=== PATIENT | female | born 1995 | race Caucasian/White ===

== ENCOUNTER 2020-03-03 12:16 | Outpatient (REF) | payer OTHER, SELFPAY | END 2020-03-03 12:17 | disposition home or self-care (01) | LOC: HO.LAB 12:16 | PROVIDERS: Visit Provider Internal Medicine | DX: Z20.828 Contact with and (suspected) exposure to other viral communicable diseases (principal) | CPT/HCPCS: C9803; U0003 ==

== ENCOUNTER 2020-03-15 23:09 | Emergency (ER) | payer OTHER, SELFPAY ==
[2020-03-15 23:25] VITALS: BP 134/78; PULSE 98; RESP 16; TEMP 36.6; O2SAT 100
[2020-03-15 23:41] VITALS: BP 134/78; PULSE 98; RESP 17; TEMP 36.6; O2SAT 100; BMI 33.5
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
[2020-03-16] MEDS: Ibuprofen 600 MG TABLET PO (00:37)
[2020-03-16 00:56] VITALS: BP 112/57; PULSE 81; RESP 16; O2SAT 100
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
== END 2020-03-16 02:13 | disposition home or self-care (01) ==
PROVIDERS: Emergency Provider Internal Medicine
DX: S13.4XXA Sprain of ligaments of cervical spine, initial encounter (principal); S29.012A Strain of muscle and tendon of back wall of thorax, initial encounter; S39.012A Strain of muscle, fascia and tendon of lower back, initial encounter; S16.1XXA Strain of muscle, fascia and tendon at neck level, initial encounter; M54.2 Cervicalgia; G44.309 Post-traumatic headache, unspecified, not intractable; V43.52XA Car driver injured in collision with other type car in traffic accident, initial encounter; Y93.9 Activity, unspecified; Y92.410 Unspecified street and highway as the place of occurrence of the external cause; Z98.84 Bariatric surgery status; Z79.899 Other long term (current) drug therapy
CPT/HCPCS: 70450; 72100; 72125; 99283; 99284

== ENCOUNTER 2020-10-14 08:18 | Outpatient (REF) | payer OTHER, SELFPAY ==
[2020-10-15 01:17] LABS: CT PCR NOT DETECTED (Not Detect.); NG PCR NOT DETECTED (Not Detect.)
== END 2020-10-14 08:19 | disposition home or self-care (01) ==
LOC: HO.LAB 08:18
PROVIDERS: Visit Provider Advanced Practice Midwife
DX: Z01.419 Encounter for gynecological examination (general) (routine) without abnormal findings (principal); Z11.3 Encounter for screening for infections with a predominantly sexual mode of transmission; G43.109 Migraine with aura, not intractable, without status migrainosus; Z20.2 Contact with and (suspected) exposure to infections with a predominantly sexual mode of transmission
CPT/HCPCS: 87491; 87591; 88142

== ENCOUNTER 2020-12-26 09:32 | Outpatient (REF) | payer OTHER, SELFPAY | END 2020-12-26 09:33 | disposition home or self-care (01) | LOC: HO.LAB 09:32 | PROVIDERS: Visit Provider Internal Medicine | DX: Z13.89 Encounter for screening for other disorder (principal) ==

== ENCOUNTER 2021-12-22 09:20 | Outpatient (REF) | payer OTHER, SELFPAY ==
[2021-12-22 16:33] LABS: CT PCR NOT DETECTED (Not Detect.); NG PCR NOT DETECTED (Not Detect.)
== END 2021-12-22 09:21 | disposition home or self-care (01) ==
LOC: HO.LNP 09:20
PROVIDERS: Visit Provider Advanced Practice Midwife
DX: Z11.3 Encounter for screening for infections with a predominantly sexual mode of transmission (principal); Z20.2 Contact with and (suspected) exposure to infections with a predominantly sexual mode of transmission
CPT/HCPCS: 87491; 87591

== ENCOUNTER 2022-04-13 03:08 | Emergency (ER) | payer OTHER, SELFPAY ==
[2022-04-13 03:19] VITALS: BP 120/63; PULSE 64; RESP 18; TEMP 36.6; O2SAT 100; BMI 25.7
--- OUTSIDE RECORDS SUMMARY | 2022-04-13 03:30 | XMS_ITS | Continuity of Care Document ---
:1995 Author Organization [facility] Address [address] [place] [address]- Care Team Providers Name Role Phone Wing Coley MD Primary Care Physician Encounter [facility] [place] Date(s): 08/29/21 - 09/28/21 [facility] [address] [place] [address]- Allergies, Adverse Reactions, Alerts No Known Allergies
--- OUTSIDE RECORDS SUMMARY | 2022-04-13 03:30 | XMS_ITS | Continuity of Care Document ---
:1995 Author Organization [facility] Address [address] [place] [id number]- Care Team Providers Name Role Phone Wing Coley MD Primary Care Physician Encounter [facility] [place] Date(s): 01/26/21 - 01/26/[address] [address] Discharge Disposition: A-D/C Home Attending Physician: Petra Dubois MD Admitting Physician: Petra Dubois MD Referring Physician: Fany Mojica MD Allergies, Adverse Reactions, Alerts Substance Reaction Severity Status NKA Active
--- OUTSIDE RECORDS SUMMARY | 2022-04-13 03:30 | XMS_ITS | Continuity of Care Document ---
:1995 Author Organization [facility] Address [address] [place] [address]- Care Team Providers Name Role Phone Wing Coley MD Primary Care Physician Encounter [facility] Date(s): 08/29/21 - 09/28/21 [facility] [address] Attending Physician: Bertram Ceron Admitting Physician: Bertram Ceron Referring Physician: Admtr, [id number] Allergies, Adverse Reactions, Alerts No Known Allergies
--- NOTE | 2022-04-13 04:31 | ED.EYEPROB ---
HPI - Eye Problem General Chief complaint: Eye Problems Stated complaint: eye swelling Time Seen by Provider: 04/13/22 04:31 Source: patient Mode of arrival: ambulatory Limitations: no limitations History of Present Illness HPI Narrative: Patient woke up an hour ago with right eyelid swollen with chemosis denies any allergies does not wear any contact lenses Related Data Home Medications Medication Instructions Recorded Confirmed cholecalciferol (vitamin D3) 25 25 mcg PO DAILY 10/14/20 mcg (1,000 unit) tablet famotidine 40 mg tablet 40 mg PO DAILY 10/14/20 ferrous sulfate 325 mg (65 mg 325 mg PO DAILY 10/14/20 iron) tablet Previous Rx's Medication Instructions Recorded cyclobenzaprine 10 mg tablet 10 mg PO TID PRN muscle spasm #14 03/16/20 tabs norethindrone (contraceptive) 0.35 0.35 mg PO DAILY 30 days #30 tabs 10/14/20 mg tablet (Adrianne) diphenhydramine HCl 25 mg capsule 25 mg PO TID PRN allergic reaction 04/13/22 (Benadryl) #20 caps olopatadine 0.1 % eye drops 1 drp ophthalmic (eye) BID #5 mL 04/13/22 (Pataday Twice Daily Relief) Allergies Allergy/AdvReac Type Severity Reaction Status Date / Time shrimp [SHRIMP] Allergy Unknown LIP Verified 12/22/21 08:33 SWELLING Coconut Allergy Unknown itching Uncoded 12/22/21 08:33 Oxycodone Allergy Unknown itching Uncoded 12/22/21 08:33 Sea food Allergy Unknown itching Uncoded 12/22/21 08:33 Review of Systems Review of Systems: Yes all other systems are reviewed and are negative PMF Past Medical History Medical History Acid reflux Anxiety Migraine with aura Surgical History History of delivery History of gastric surgery Family History Family History Father Diabetes Asthma Mother HTN (hypertension) Asthma Brother Asthma Social History Social History Household Members Other:: son Housing: Apartment Alcohol intake: never Patient Tobacco Use Status: Never used Tobacco Advance Directives: No Advance Directives Information Provided: Yes Current occupational status: employed and student Current occupation: [employer] Sexual orientation: Straight/Heterosexual Gender identity: Female Physical Exam Vital Signs: Vital Signs: Last Vital Signs Temp 97.9 F 04/13/22 03:19 Pulse 68 04/13/22 04:40 Resp 18 04/13/22 04:40 BP 124/64 04/13/22 04:40 Pulse Ox 100 04/13/22 04:40 O2 Del Method 04/13/22 04:40 BMI result Body Mass Index 25.7 Appearance: Alert. Oriented X3. No acute distress. HEENT: Pharynx normal. Oral Mucosa moist, right eye lid swollen with chemosis no foreign body seen cornea normal Neck: Normal inspection. Neck supple. CVS: Normal heart rate and rhythm. Pulses normal. Respiratory: No respiratory distress. Skin: Skin warm and dry. Normal skin color. Extremities: No lower extremity edema. Neuro: Oriented X 3. Discharge Plan Discharge Clinical Impression: Acute allergic conjunctivitis Patient Disposition: Home, Self-Care Instructions: Conjunctivitis (ED) Additional Instructions: Have allergic conjunctivitis on the right side Eyedrops as advised Benadryl every 6 hours as needed Prescriptions: New olopatadine [Pataday Twice Daily Relief] 0.1 % drops 1 drp ophthalmic (eye) BID Qty: 5 0RF Rx Instructions: separate doses by at least 6-8 hours diphenhydramine HCl [Benadryl] 25 mg capsule 25 mg PO TID PRN (Reason: allergic reaction) Qty: 20 0RF No Action cyclobenzaprine 10 mg tablet 10 mg PO TID PRN (Reason: muscle spasm) Qty: 14 0RF cholecalciferol (vitamin D3) 25 mcg (1,000 unit) tablet 25 mcg PO DAILY famotidine 40 mg tablet 40 mg PO DAILY ferrous sulfate 325 mg (65 mg iron) tablet 325 mg PO DAILY norethindrone (contraceptive) [Adrianne] 0.35 mg tablet 0.35 mg PO DAILY 30 Days Qty: 30 11RF
[2022-04-13 04:40] VITALS: BP 124/64; PULSE 68; RESP 18; O2SAT 100
[2022-04-13] MEDS: diphenhydrAMINE HCL 25 MG CAPSULE 50 MG PO (05:17)
== END 2022-04-13 05:23 | disposition home or self-care (01) ==
PROVIDERS: Emergency Provider Internal Medicine; PCP Internal Medicine
DX: H10.11 Acute atopic conjunctivitis, right eye (principal)
CPT/HCPCS: 99283

== ENCOUNTER 2022-11-12 11:52 | Emergency (ER) | payer OTHER, SELFPAY ==
[2022-11-12 12:06] VITALS: BP 136/82; BP 99/60; PULSE 103; PULSE 91; RESP 18; TEMP 36.9; O2SAT 96; O2SAT 98; BMI 34.6
--- NOTE | 2022-11-12 12:09 | ECG_ITS ---
Test Reason : SYNCOPE Blood Pressure : / mmHG Vent. Rate : 076 BPM Atrial Rate : 076 BPM P-R Int : 130 ms QRS Dur : 076 ms QT Int : 358 ms P-R-T Axes : 061 034 023 degrees QTc Int : 402 ms Normal sinus rhythm Normal ECG When compared with ECG of 24-DEC-2018 14:18, No significant change was found Referred By: Rowena Barrientos Electronically Signed By:CARMEN HERNANDEZ
[2022-11-12 12:10] LABS: Glucose, Whole Blood 86 mg/dL (60-115)
--- NOTE | 2022-11-12 12:11 | ED_ITS ---
HPI - Syncope General Chief Complaint: Fall Stated Complaint: SYNCOPE W/+LOC,NAUSEA,+/2ND TRIMESTER Time Seen by Provider: 11/12/22 11:59 Source: patient and old records reviewed Mode of arrival: EMS Limitations: no limitations History of Present Illness HPI narrative: 27 yo female 15 weeks D = [facility] has been dealing with anemia taking her Fe supplement and also stress and poor appetite. She admits to not eating much for dinner last night and not eating breakfast. She went to see her mom this AM and was waiting outside when she felt hot and dizzy and then fell hitting front of L head. NO LOC and could hear everything going on. She has no CP/SOB. She is feeling much better with fluids. She denies blood thinners. She has no abdominal pain or vaginal bleeding. No seizure activity and normal BP with EMS MD complaint: felt faint and almost passed out Onset (ago): minute(s) (just prior to arrival ) Duration of episode: 10 -: minutes(s) Prodromal symptoms: lightheaded and nausea/vomiting Witnessed: Yes - by Bystander Context: standing up Injuries sustained associated with event: head (L frontal scalp) Current symptoms: back to baseline History: other (anemia, poor PO intake) Treatments prior to arrival: IV fluids Related Data Home Medications Medication Instructions Recorded Confirmed cholecalciferol (vitamin D3) 25 25 mcg PO DAILY 10/14/20 mcg (1,000 unit) tablet famotidine 40 mg tablet 40 mg PO DAILY 10/14/20 ferrous sulfate 325 mg (65 mg 325 mg PO DAILY 10/14/20 iron) tablet Previous Rx's Medication Instructions Recorded cyclobenzaprine 10 mg tablet 10 mg PO TID PRN muscle spasm #14 03/16/20 tabs norethindrone (contraceptive) 0.35 0.35 mg PO DAILY 30 days #30 tabs 10/14/20 mg tablet (Adrianne) diphenhydramine HCl 25 mg capsule 25 mg PO TID PRN allergic reaction 04/13/22 (Benadryl) #20 caps olopatadine 0.1 % eye drops 1 drp ophthalmic (eye) BID #5 mL 04/13/22 (Pataday Twice Daily Relief) Allergies Allergy/AdvReac Type Severity Reaction Status Date / Time shrimp [SHRIMP] Allergy Unknown LIP Verified 11/12/22 12:06 SWELLING [place] Allergy Unknown itching Uncoded 12/22/21 08:33 Oxycodone Allergy Unknown itching Uncoded 12/22/21 08:33 Sea food Allergy Unknown itching Uncoded 12/22/21 08:33 Review of Systems Review of Systems: Constitutional : No Fever, No Chills, No Fatigue ENT/Mouth : No sore throat, No Rhinorrhea Eyes: No Eye Pain, No Swelling, No Redness Cardiovascular : No Chest Pain, No SOB, No Dyspnea on Exertion Respiratory : No Cough, No Sputum Gastrointestinal : No Nausea, No Vomiting, No Diarrhea, No abdominal Pain Genitourinary : No Dysuria, No Urinary Frequency, No Hematuria, Musculoskeletal : No joint pain, No Myalgias, No Joint Swelling Skin : No Skin Lesions, No rash Neuro : No Weakness, No Numbness, pos Dizziness, no Headache Psych : No Anxiety/Panic, No Depression Heme/Lymph: No Bruising, No Bleeding,No Lymphadenopathy Endocrine : No Polyuria, No Polydipsia All other systems reviewed and are negative REPLACED BY [facility] Past Medical History Attestation statement: The following information was validated with the patient. Medical History Acid reflux Anxiety Migraine with aura Surgical History History of delivery History of gastric surgery Family History Family History Father Diabetes Asthma Mother HTN (hypertension) Asthma Brother Asthma Social History Social History Household Members Other:: son Housing: Apartment Alcohol intake: never Patient Tobacco Use Status: Never used Tobacco Smoked in Last 30 Days: No Use of substances other than those prescribed or required for medical reasons: No Advance Directives: No Advance Directives Information Provided: No Patient : Yes Current occupational status: employed and student Current occupation: [email or web address] Sexual orientation: Straight/Heterosexual Gender identity: Female Physical Exam Vital Signs: Vital Signs: Last Vital Signs Temp 98.5 F 11/12/22 12:06 Pulse 84 11/12/22 13:41 Resp 18 11/12/22 13:41 BP 100/58 L 11/12/22 13:41 Pulse Ox 98 11/12/22 13:41 O2 Del Method Room Air 11/12/22 13:41 BMI result Body Mass Index 34.6 Appearance: Alert. Oriented X3. No acute distress. Eyes: Pupils equal, round and reactive to light. ENT: Pharynx normal. slight contusion to L forehead but no raccoon simons sign no temporal ttp Neck: Normal inspection. Neck supple. normal ROM CVS: Normal heart rate and rhythm. Pulses normal. Respiratory: No respiratory distress. Breath sounds normal. Abdomen: Soft and nontender. Skin: Skin warm and dry. pale skin color. Normal skin turgor. Extremities: No lower extremity edema. No calf ttp Neuro: Oriented X 3. No motor deficit. No sensory deficit. Course Course Course Narrative: up and walking observed for 2 hours stable for DC Medications Administered Discontinued Medications Generic Name Dose Route Start Last Admin Trade Name Freq PRN Reason Stop Dose Admin Sodium Chloride 1,000 mls @ 999 mls/hr 11/12/22 12:15 11/12/22 13:38 Ns IV 11/12/22 13:15 Infused .Q1H1M MADAY Infusion Medical Decision Making Medical Decision Making [facility] Narrative: 27 yo female 15 weeks D = US here with c/o near syncope but no CP/SOB did hit head but no thinners no severe headaches and GCS 15 is dealing with anemia and poor PO intake will obtain labs, hydrate obtain EKG - she has no abdominal pain or vaginal bleeding - will get bedside US and HR - given lack of SOCIAL INSURANCE SPECIALIST complaints and no trauma to abdomen and not viable I do not think she needs OB monitoring. Suspect poor PO intake she did not eat today or last night she is eating now. She has no CP/SOB to suggest ACS or PE. Differential Diagnosis Differential Diagnoses: The differential diagnosis associated with the presentation includes dehydration, poor PO intake, anemia doubt PE has no CP/SOB Admission/Observation Consideration of admission/observation: Escalation of care including admission/observation considered tolerating PO at baseline no pain or complaints eating stable for DC up and walking feels fine Lab Data [facility] Lab Attestation statement: I reviewed the patient's lab results. H/H stable 11/12/22 12:40 11/12/22 12:40 Labs: Lab Results 11/12/22 11/12/22 11/12/22 Range/Units 12:06 12:40 12:40 WBC 6.7 (4.8-10.8) X10*3/uL RBC 3.73 L (4.20-5.50) X10*6/uL Hgb 10.2 L (12.0-16.0) g/dl Hct 30.8 L (37.0-47.0) % MCV 82.6 (80.0-98.0) fL MCH 27.3 (27.0-33.0) pg MCHC 33.1 (31.0-35.0) g/dl RDW 15.9 (11.0-16.0) % Plt Count 203 (160-400) X10*3/uL MPV 10.3 (9.4-12.3) fL Immature Gran % (Auto) 0.4 (0.0-0.4) % Neut % (Auto) 78.4 H (45-73) % Lymph % (Auto) 8.8 L (20-40) % [facility] % (Auto) 9.0 (2-11) % Eos % (Auto) 3.0 (0-4) % Baso % (Auto) 0.4 (0-2) % Lymph # (Auto) 0.6 L (1.2-4.9) X10*3/uL [facility] # (Auto) 0.6 (0.1-1.2) X10*3/uL Eos # (Auto) 0.2 (0.0-0.4) X10*3/uL Baso # (Auto) 0.0 (0.0-0.2) X10*3/uL Abs Immat Gran (auto) 0.03 (0.00-0.03) X10*3/uL Absolute Neuts (auto) 5.2 (2.0-8.3) x10*3/uL Absolute Nucleated RBC 0.000 (0.0-0.012) X10*3/uL Nucleated RBC % (auto) 0.0 (0.0-0.2) /100WBC Sodium 138 (135-145) mmol/L Potassium 3.7 (3.3-5.1) mmol/L Chloride 111 H (96-108) mmol/L Carbon Dioxide 21 L (22-29) mmol/L Anion Gap 10 L (12-20) BUN 8 L (9-16) mg/dL Creatinine 0.64 (0.5-1.4) mg/dL Estim Creat Clear Calc 142.0 Estimated GFR > 60 POC Glucose 86 (60-115) mg/dL Random Glucose 96 (60-115) mg/dL Calcium 8.9 (8.4-10.2) mg/dL Magnesium 1.8 (1.6-2.6) mg/dL Total Bilirubin 0.3 (0.0-1.0) mg/dL Direct Bilirubin 0.1 (0.0-0.5) mg/dL AST 12 (5-31) U/L ALT 9 (0-31) U/L Alkaline Phosphatase 60 (39-117) U/L Total Protein 6.0 L (6.5-8.0) g/dL Albumin 3.4 L (3.5-5.0) g/dL Urine Color Urine Appearance Urine pH (5.0-9.0) Ur Specific [place] (1.005-1.025) Urine Protein (Neg-Trace) mg/dL Urine Glucose (UA) (Negative) mg/dL Urine Ketones (Negative) mg/dL Urine Blood (Negative) Urine Nitrite (Negative) Ur Leukocyte Esterase (Negative) Urine RBC (0-2) /HPF Urine WBC (0-5) /HPF Ur Squamous Epith Cells (0-2) /HPF Urine Bacteria (None Seen) Hyaline Casts (0-2) /LPF 11/12/22 Range/Units 12:40 WBC (4.8-10.8) X10*3/uL RBC (4.20-5.50) X10*6/uL Hgb (12.0-16.0) g/dl Hct (37.0-47.0) % MCV (80.0-98.0) fL MCH (27.0-33.0) pg MCHC (31.0-35.0) g/dl RDW (11.0-16.0) % Plt Count (160-400) X10*3/uL MPV (9.4-12.3) fL Immature Gran % (Auto) (0.0-0.4) % Neut % (Auto) (45-73) % Lymph % (Auto) (20-40) % [facility] % (Auto) (2-11) % Eos % (Auto) (0-4) % Baso % (Auto) (0-2) % Lymph # (Auto) (1.2-4.9) X10*3/uL [facility] # (Auto) (0.1-1.2) X10*3/uL Eos # (Auto) (0.0-0.4) X10*3/uL Baso # (Auto) (0.0-0.2) X10*3/uL Abs Immat Gran (auto) (0.00-0.03) X10*3/uL Absolute Neuts (auto) (2.0-8.3) x10*3/uL Absolute Nucleated RBC (0.0-0.012) X10*3/uL Nucleated RBC % (auto) (0.0-0.2) /100WBC Sodium (135-145) mmol/L Potassium (3.3-5.1) mmol/L Chloride (96-108) mmol/L Carbon Dioxide (22-29) mmol/L Anion Gap (12-20) BUN (9-16) mg/dL Creatinine (0.5-1.4) mg/dL Estim Creat Clear Calc Estimated GFR POC Glucose (60-115) mg/dL Random Glucose (60-115) mg/dL Calcium (8.4-10.2) mg/dL Magnesium (1.6-2.6) mg/dL Total Bilirubin (0.0-1.0) mg/dL Direct Bilirubin (0.0-0.5) mg/dL AST (5-31) U/L ALT (0-31) U/L Alkaline Phosphatase (39-117) U/L Total Protein (6.5-8.0) g/dL Albumin (3.5-5.0) g/dL Urine Color Yellow Urine Appearance Clear Urine pH 5.5 (5.0-9.0) Ur Specific [place] 1.025 (1.005-1.025) Urine Protein 30 (1+) H (Neg-Trace) mg/dL Urine Glucose (UA) Negative (Negative) mg/dL Urine Ketones Trace (Negative) mg/dL Urine Blood Negative (Negative) Urine Nitrite Negative (Negative) Ur Leukocyte Esterase Negative (Negative) Urine RBC 3-5 H (0-2) /HPF Urine WBC 6-10 (0-5) /HPF Ur Squamous Epith Cells 3-5 (0-2) /HPF Urine Bacteria None Seen (None Seen) Hyaline Casts 3-5 (0-2) /LPF Independent Interpretation I performed an independent interpretation of an: EKG Interpretation: Rate: 76 Rhythm: NSR [place]: normal Normal P waves. Normal DAYA. Normal QRS complex. ST T wave : inverted t wave V1 no NORM qTC: normal prior studies: no acute ischemia The study has been interpreted contemporaneously by me. . Independent Historian Clinical information obtained from an independent historian. History obtained from or confirmed by: Parent and EMS External Record Review External record reviewed: Office record and Outpatient record Tests considered The following testing was considered but not selected: CT head but no thinners normal mental status no LOC GCS 15 will observe doubt ICH Discharge Plan Discharge Clinical Impression: Near syncope Patient Disposition: Home, Self-Care Instructions: Near Syncope (ED) Additional Instructions: return for worsening symptoms dizziness - stay hydrated drink plenty of fluids, you need to eat regularly - your protein level was mildly low. your hemoglobin was stable at 10.2 contact your OB continue your iron return for worsening symptoms of chest pain, trouble breathing, vomiting, abdominal pain, severe headaches, confusion, vaginal bleeding or any other concerns. Prescriptions: No Action cyclobenzaprine 10 mg tablet 10 mg PO TID PRN (Reason: muscle spasm) Qty: 14 0RF olopatadine [Pataday Twice Daily Relief] 0.1 % drops 1 drp ophthalmic (eye) BID Qty: 5 0RF Rx Instructions: separate doses by at least 6-8 hours diphenhydramine HCl [Benadryl] 25 mg capsule 25 mg PO TID PRN (Reason: allergic reaction) Qty: 20 0RF cholecalciferol (vitamin D3) 25 mcg (1,000 unit) tablet 25 mcg PO DAILY famotidine 40 mg tablet 40 mg PO DAILY ferrous sulfate 325 mg (65 mg iron) tablet 325 mg PO DAILY norethindrone (contraceptive) [Adrianne] 0.35 mg tablet 0.35 mg PO DAILY 30 Days Qty: 30 11RF
[2022-11-12] MEDS: 0.9 % Sodium Chloride 1,000 ML 999 ML IV (12:15)
--- NOTE | 2022-11-12 12:28 | PC.NURSE ---
pt a&ox4, vss, FHR 136, , 15w , reports near syncopal episode w +ve head strike, denies LOC/thinners, reports decreased PO intake over the past two days. IV right wrist placed by EMS, 1L NS running, tech at bedside for EKG/labs, food and malik antonio given to pt. resting quietly, family at bedside.
[2022-11-12 12:45] LABS: MANUAL DIFF FLAG NO
[2022-11-12 12:47] LABS: Appearance Urine Clear; Basophils Percent Auto 0.4 % (0-2); Color Urine Yellow; Eosinophils Absolute Auto 0.2 X10*3/uL (0.0-0.4); Glucose Urine UA Negative (Negative); Hematocrit 30.8 % (37.0-47.0); Hemoglobin 10.2 g/dl (12.0-16.0); Imm Gran Abs Auto 0.03 X10*3/uL (0.00-0.03); Imm Gran Pct Auto 0.4 % (0.0-0.4); Leukocyte Esterase Urine Negative (Negative); Lymphocytes Absolute Auto 0.6 X10*3/uL (1.2-4.9); Lymphocytes Percent Auto 8.8 % (20-40); Mean Corpuscular HGB Conc 33.1 g/dl (31.0-35.0); Mean Corpuscular Hemoglobin 27.3 pg (27.0-33.0); Mean Corpuscular Volume 82.6 fL (80.0-98.0); Mean Platelet Volume 10.3 fL (9.4-12.3); Monocytes Absolute Auto 0.6 X10*3/uL (0.1-1.2); Neutrophils Absolute Auto 5.2 x10*3/uL (2.0-8.3); Neutrophils Percent Auto 78.4 % (45-73); Nitrite Urine Negative (Negative); PH 5.5 (5.0-9.0); Platelet Count 203 X10*3/uL (160-400); Red Blood Count 3.73 X10*6/uL (4.20-5.50); Red Cell Distribution Width 15.9 % (11.0-16.0); Specific Gravity - Urine 1.025 (1.005-1.025); UMIC TRIGGER UACC YES; Urine Blood Negative (Negative); Urine Ketones Trace mg/dL (Negative); Urine Protein 30 (1+) mg/dL (Neg-Trace); White Blood Count 6.7 X10*3/uL (4.8-10.8)
[2022-11-12 12:55] LABS: Bacteria Urine None Seen (None Seen); UACC Culture Trigger YES
[2022-11-12 13:02] LABS: Alanine Aminotransferase 9 U/L (0-31); Albumin Level 3.4 g/dL (3.5-5.0); Alkaline Phosphatase 60 U/L (39-117); Anion Gap 10 (12-20); Aspartate Amino Transferase 12 U/L (5-31); Bilirubin Direct 0.1 mg/dL (0.0-0.5); Bilirubin Total 0.3 mg/dL (0.0-1.0); Blood Urea Nitrogen 8 mg/dL (9-16); Calcium 8.9 mg/dL (8.4-10.2); Carbon Dioxide 21 mmol/L (22-29); Chloride 111 mmol/L (96-108); Estimated Glomerular Filt Rate > 60; Glucose Random 96 mg/dL (60-115); Magnesium 1.8 mg/dL (1.6-2.6); Potassium 3.7 mmol/L (3.3-5.1); Sodium 138 mmol/L (135-145)
[2022-11-12 13:41] VITALS: BP 100/58; PULSE 84; RESP 18; O2SAT 98
== END 2022-11-12 14:07 | disposition home or self-care (01) ==
PROVIDERS: Emergency Provider Emergency Medicine
DX: O26.92 Pregnancy related conditions, unspecified, second trimester (principal); R55 Syncope and collapse; R11.2 Nausea with vomiting, unspecified; Z79.899 Other long term (current) drug therapy; Z3A.15 15 weeks gestation of pregnancy
CPT/HCPCS: 36415; 80048; 80076; 81001; 82947; 83735; 85025; 87086; 87147; 93005; 96360; 99284; 99285

== ENCOUNTER 2023-11-15 08:23 | Outpatient (AMB) | payer OTHER, SELFPAY ==
--- NOTE | 2023-11-15 08:25 | AM.OFFWIN_ITS ---
Intake Vital Signs 11/15/23 08:27 Height 5 ft 4 in Weight 210 lb BMI 36.0 BP 132/84 Blood Pressure Location Lt brachial Position Sitting Pulse 114 H Pulse Source Pulse Oximeter Temp 98.2 F Temp Source Oral Pulse Oximetry (%) 99 Oxygen Delivery Method Room Air Intake Visit Reasons: EP- Dizziness, nauseous Intake Note: pt c/o dizziness and nausea. Started last night. Requests test Patient Tobacco Use Status: Never used Tobacco Allergies shrimp [SHRIMP] Allergy (Unknown, Verified 11/15/23 08:25) LIP SWELLING [place] Allergy (Unknown, Uncoded 11/15/23 08:25) itching Oxycodone Allergy (Unknown, Uncoded 11/15/23 08:25) itching Sea food Allergy (Unknown, Uncoded 11/15/23 08:25) itching Medication List - Last Reconciled 11/15/23 by Debra Peters MD famotidine 40 mg PO DAILY olopatadine 0.1% (Pataday Twice Daily Relief) 1 drp ophthalmic (eye) BID omeprazole 40 mg PO DAILY Do you need a note to return to daycare/school/sports/work: No HPI EP- Dizziness, nauseous HPI Details Patient is 28-year-old female came in today to be evaluated for possible Patient has been feeling dizzy since last night and nauseous Patient says last time she was she felt like that Her last menstrual period was October 11 approximate There is no fever no chills no vomiting no diarrhea no abdominal pain no chest pain no shortness a breath no cough, there is no ear pain Her test is negative Head movement test is positive, most likely patient have vertigo Last time she had labs she was anemic with hemoglobin of 10.2 that was October of last year Patient says that she has a primary care at [facility] and she has appointment coming up next week Meanwhile she is requesting up blood test for , I have also added metabolic profile and CBC as well as iron Further management after the blood report 15:47 Lab report came back, patient's hemoglobin is 8 with ferritin of 4 I have sent iron supplement to be taken 2 times a day with orange juice Patient has appointment coming up with primary care in a week she need to further discuss it with her PCP I have also sent meclizine to be taken up to 3 times a day 25 mg Zofran for nausea Her test came back negative in labs Patient was notified of above plan [facility] Medical History Migraine with aura Acid reflux Anxiety Surgical History History of delivery History of gastric surgery Family History Father Diabetes Asthma Mother HTN (hypertension) Asthma Brother Asthma Social History Household Members Other:: son Housing: Apartment Alcohol intake: never Patient Tobacco Use Status: Never used Tobacco Current occupational status: employed and student Current occupation: [employer] Sexual orientation: Straight/Heterosexual Gender identity: Female Female Reproductive History Menstrual Age of Menarche: 8 Review of Systems Const All systems reviewed & are unremarkable except as noted in HPI and below Denies chills and Denies fever(s) ENT Denies epistaxis and Denies nasal discharge Card Denies chest pain Resp Denies chest congestion, Denies cough and Denies hemoptysis GI Denies diarrhea and Denies nausea Skin/Breast Denies rash Neuro Reports no additional complaints Psych Reports no additional complaints Endo Reports no additional complaints Physical Exam Vital Signs: Last Vital Signs Temp 98.2 F 11/15/23 08:27 Pulse 114 H 11/15/23 08:27 BP 132/84 11/15/23 08:27 Pulse Ox 99 11/15/23 08:27 Oxygen Delivery Method Room Air 11/15/23 08:27 BMI result Body Mass Index 36.0 Const General: no acute distress Orientation/consciousness: patient oriented x3 HEENT Other: Ears within normal limit bilateral Head: Yes normocephalic Eyes General: appearance normal, both eyes and all related structures Neck Other: Supple Neck: Yes supple Resp Effort & Inspection: normal respiratory effort and able to speak in complete sentences Auscultation: clear to auscultation bilaterally Cardio Other: S1 S2 Rhythm: regular rhythm Heart sounds: S1 normal heart sound present and S2 normal heart sound present Skin General skin exam: turgor normal Neuro Other: Head movement test positive General: patient oriented x3 Extrem Other: No lower extremity swelling. Right lower extremity: no edema Left lower extremity: no edema Psych Other: Normal effect, speech clear Mental Status: mental status grossly normal Results AMB Test Urine AMB Test Urine Negative Last Edit by Blane Mcguire CMA on 4 08:41 Results Reviewed Results Reviewed: Laboratory Last Values Tst Clinic Negative 11/15/23 08:33 Assessment & Plan Assessment & Plan (1) Dizziness: Code(s): R42 - Dizziness and giddiness (2) Nausea: Code(s): R11.0 - Nausea (3) Anemia: Code(s): D64.9 - Anemia, unspecified Qualifiers: Anemia type: iron deficiency Iron deficiency anemia type: unspecified iron deficiency Qualified Code(s): D50.9 - Iron deficiency anemia, unspecified (4) Feeling sick: Code(s): R68.89 - Other general symptoms and signs Plan Patient is 28-year-old female came in today to be evaluated for possible Patient has been feeling dizzy since last night and nauseous Patient says last time she was she felt like that Her last menstrual period was October 11 approximate There is no fever no chills no vomiting no diarrhea no abdominal pain no chest pain no shortness a breath no cough, there is no ear pain Her test is negative Head movement test is positive, most likely patient have vertigo Last time she had labs she was anemic with hemoglobin of 10.2 that was October of last year Patient says that she has a primary care at [facility] and she has appointment coming up next week Meanwhile she is requesting up blood test for , I have also added metabolic profile and CBC as well as iron Further management after the blood report 15:47 Lab report came back, patient's hemoglobin is 8 with ferritin of 4 I have sent iron supplement to be taken 2 times a day with orange juice Patient has appointment coming up with primary care in a week she need to further discuss it with her PCP I have also sent meclizine to be taken up to 3 times a day 25 mg Zofran for nausea Her test came back negative in labs Patient was notified of above plan More than 45 minute spent in care of this patient including follow-up care after lab report Orders: Orders Comprehensive Met. Panel Today Debra Peters MD D64.9 - Anemia, unspecified, R11.0 - Nausea, R42 - Dizziness and giddiness, R68.89 - Other general symptoms and signs AMB HCG Urine Test Today Celia Rizo PA-C Z13.9 - Encounter for screening, unspecified Complete Blood Count Auto Diff Today Debra Peters MD D64.9 - Anemia, unspecified, R11.0 - Nausea, R42 - Dizziness and giddiness, R68.89 - Other general symptoms and signs HCG Quantitative Today Debra Peters MD D64.9 - Anemia, unspecified, R11.0 - Nausea, R42 - Dizziness and giddiness, R68.89 - Other general symptoms and signs Ferritin Today Debra Peters MD D64.9 - Anemia, unspecified, R11.0 - Nausea, R42 - Dizziness and giddiness, R68.89 - Other general symptoms and signs Coding Level of Care Code Est Pt Level 5 (95028) Diagnoses Dizziness R42 Nausea R11.0 Iron deficiency anemia, unspecified iron deficiency anemia type D50.9 Anemia type: iron deficiency Iron deficiency anemia type: unspecified iron deficiency Feeling sick R68.89
[2023-11-15 08:27] VITALS: BP 132/84; PULSE 114; TEMP 36.8; O2SAT 99; BMI 36.0
== END 2023-11-15 08:51 | disposition home or self-care (01) ==
PROVIDERS: Visit Provider Internal Medicine
DX: R42 Dizziness and giddiness (principal); R11.0 Nausea; D50.9 Iron deficiency anemia, unspecified; R68.89 Other general symptoms and signs; Z32.02 Encounter for pregnancy test, result negative
CPT/HCPCS: 81025; 99215

== ENCOUNTER 2023-11-15 08:50 | Outpatient (REF) | payer OTHER, SELFPAY ==
[2023-11-15 10:09] LABS: MANUAL DIFF FLAG NO
[2023-11-15 10:25] LABS: Basophils Percent Auto 0.8 % (0-2); Eosinophils Absolute Auto 0.2 X10*3/uL (0.0-0.4); Hematocrit 28.7 % (37.0-47.0); Hemoglobin 8.8 g/dl (12.0-16.0); Imm Gran Abs Auto 0.01 X10*3/uL (0.00-0.03); Imm Gran Pct Auto 0.2 % (0.0-0.4); Lymphocytes Absolute Auto 0.9 X10*3/uL (1.2-4.9); Lymphocytes Percent Auto 19.4 % (20-40); Mean Corpuscular HGB Conc 30.7 g/dl (31.0-35.0); Mean Corpuscular Hemoglobin 21.6 pg (27.0-33.0); Mean Corpuscular Volume 70.5 fL (80.0-98.0); Mean Platelet Volume 11.1 fL (9.4-12.3); Monocytes Absolute Auto 0.5 X10*3/uL (0.1-1.2); Monocytes Percent Auto 10.8 % (2-11); Neutrophils Absolute Auto 3.1 x10*3/uL (2.0-8.3); Neutrophils Percent Auto 63.8 % (45-73); Platelet Count 255 X10*3/uL (160-400); Red Blood Count 4.07 X10*6/uL (4.20-5.50); Red Cell Distribution Width 17.8 % (11.0-16.0); White Blood Count 4.8 X10*3/uL (4.8-10.8)
[2023-11-15 10:46] LABS: Alanine Aminotransferase 9 U/L (0-31); Albumin Level 4.3 g/dL (3.5-5.0); Alkaline Phosphatase 85 U/L (39-117); Anion Gap 9 (12-20); Aspartate Amino Transferase 13 U/L (5-31); Blood Urea Nitrogen 14 mg/dL (9-16); Carbon Dioxide 25 mmol/L (22-29); Chloride 111 mmol/L (96-108); Estimated Glomerular Filt Rate > 60; Glucose Random 94 mg/dL (60-115); Potassium 3.8 mmol/L (3.3-5.1); Sodium 141 mmol/L (135-145); Total Protein 6.9 g/dL (6.5-8.0)
[2023-11-15 11:03] LABS: Bilirubin Total 0.4 mg/dL (0.0-1.0)
[2023-11-15 11:06] LABS: Ferritin 4 ng/mL (10-122); HCG Quantitative < 2 mIU/mL
== END 2023-11-15 08:51 | disposition home or self-care (01) ==
LOC: HO.HMGCLDS 08:50
PROVIDERS: PCP Internal Medicine; Visit Provider Internal Medicine
DX: R42 Dizziness and giddiness (principal); R11.0 Nausea; D64.9 Anemia, unspecified; R68.89 Other general symptoms and signs
CPT/HCPCS: 36415; 80053; 82728; 84702; 85025

== ENCOUNTER 2024-05-14 08:10 | Outpatient (AMB) | payer OTHER, SELFPAY ==
--- OUTSIDE RECORDS SUMMARY | 2024-05-14 08:13 | XMS_ITS | Clinical Summary ---
Author Organization [employer] [facility] Address [address] [place] [address] Care Team Providers Care Cd Manufacturing Supervisor Name Role Phone Wing Coley MD Primary Care Provider Allergies Active Allergy Reactions Criticality Noted Date Comments Shellfish 02/28/2021 Medications Medication Sig Dispensed Refills Start Date End Date Status famotidine (PEPCID) 40 MG tablet Take 40 mg by mouth daily. 0 Active ferrous sulfate 325 (65 FE) MG tablet Take 325 mg by mouth every morning with breakfast. 0 Active vitamin D3 (VITAMIN D3) 25 MCG (1000 UT) tablet Take 1,000 Units by mouth daily. 0 Active Active Problems Problem Noted Date Diagnosed Date Class 1 obesity due to exces s calories without serious comorbidity with body mass index (BMI) of 31.0 to 31.9 in adult 12/31/2019 Depression 11/28/2016 GERD (gastroesophageal reflux disease) H/O gastric bypass Family History Relation Name Status Comments Father Alive Mother Alive Social History Tobacco Use Types Packs/Day Years Used Date Smoking Tobacco: Never Smokeless Tobacco: Never Alcohol Use Standard Drinks/Week Comments Not Currently 0 (1 standard drink = 0.6 oz pur e alcohol) Sex and Gender Information Value Date Recorded Sex Assigned at Not on file Gender Identity Not on file Sexual Orientation Not on file Job Start Date Occupation Industry Not on file Not on file Not on file Last Filed Vital Signs Vital Sign Reading Time Taken Comments Blood Pressure 117/62 02/28/2021 3:14 PM EST Pulse 82 02/28/2021 3:14 PM EST Temperature 36.8 ??C (98.3 ??F) 02/28/2021 3:14 PM ES T Respiratory Rate - - Oxygen Saturation 99% 02/28/2021 3:14 PM EST Inhaled Oxygen Concentration - - Weight 83.9 kg (185 lb) 02/28/2021 3:14 PM EST Height 162.6 cm (5' 4 ) 02/28/2021 3:14 PM EST Body Mass Index 31.76 02/28/2021 3:14 PM EST Plan of Treatment Health Maintenance Due Date Last Done Comments Hepatitis B Vaccines (1 of 3 - 3-dose series) 1993 Hepatitis C Screening 1993 COVID-19 Vaccine (#1) 01/24/1994 Depression Screening 2005 Preventative Health Evaluation 07/25/2011 Cervical Cancer Screening (Pap Smear) 2014 Influenza Vaccine (#1) 2023 DTap / Tdap / Td (8 - Td or Tdap) 05/09/2030 05/09/2020, 06/27/2006, 10/23/1998, Additional history exists Pneumococcal Vaccine Aged Out No long er eligible based on patient's age to complete this topic RSV Ped < 20 months Aged Out No longe r eligible based on patient's age to complete this topic Care Teams Cd Manufacturing Supervisor Relationship Specialty Start Date End Date Wing Coley MD [address] [place] [address] PCP - General Internal Medicine 02/02/21
--- OUTSIDE RECORDS SUMMARY | 2024-05-14 08:13 | XMS_ITS | Encounter Summary ---
Author Organization [employer] Address [address] [place] [address] Care Team Providers Care Manpower Development Specialist Name Role Phone Cheikh Flor MD Primary Care Provider [phone] Reason for Visit * Reason Onset Date Comments Covid-19 05/13/2024 Encounter Details Date Type Department Care Team ([facility] st Contact Info) Description 05/13/2024 Telephone Adult Medicine [address] [id number] Cheikh Flor MD [address] [place] [phone] Covid-19 Social History Tobacco Use Types Packs/Day Years Used Date Smoking Tobacco: Never Smokeless Tobacco: Never Alcohol Use Standard Drinks/Week Comments No 0 (1 standard drink = 0.6 oz pur e alcohol) Comments Unknown Sex and Gender Information Value Date Recorded Sex Assigned at Not on file Legal Sex Female 4:50 AM EST Gender Identity Not on file Sexual Orientation Not on file documented as of this encounter Progress Notes * Campos Hi RN - 05/13/2024 10:46 AM EST Called and spoke with pt pt tested positive for covid on 05/10 no sx asking for return to work note.Advised needs to speak with employer on their policy for positive covid testing if needs work note from us needs appt and can't be seen until 10 days after dx * Jane Fletcher - 05/13/2024 8:38 AM EST Patient call requires triage: Symptoms patient is presenting: COVID positive on 05/10/24 currently asymptomatic. Asking for not toreturn to work How long has patient had these symptoms?: For ALL patients calling to schedule any appointment (routine, sick visit, follow up, consult, etc.) in the outpatient setting please ask the following questions: Do you have fever of higher than 101, sore throat with difficulty swallowing or severe shortness ofbreath? no If YES to any of these above symptoms, send a message to triage and do not book. Red dot. If no, an audio or video visit should be booked. Have you had close contact with someone with Coronavirus in the last 14 days? no Have you traveled abroad? no Have you traveled recently to another state outside of [place], [place], [place], [place], [place], [place], [place]? no o If yes, did you quarantine for 14 days or have a negative covid test? no If yes to any of the above, patient is not to be scheduled in office until after 14 day quarantine or negative covid test. If pain or injury related was it due to an accident at work or from a motor vehicle accident? If yes, date of accident/Injury: No If yes, gather 3rd libertarian insurance information Third Republican Information: not applicable PCP: Cheikh Flor MD Payor: [employer] PLAN / Plan: [employer] MEDICAID / Product Type: *No Product type* / documented in this encounter Plan of Treatment Not on file documented as of this encounter Visit Diagnoses Not on filedocumented in this encounter Care Teams Manpower Development Specialist Relationship Specialty Start Date End Date Cheikh Flor MD [address] [place] [address] PCP - General Internal Medicine 10/31/21 documented as of this encounter
--- OUTSIDE RECORDS SUMMARY | 2024-05-14 08:13 | XMS_ITS | Clinical Summary ---
Author Organization [address] Address [address] [place] [phone] Phone Care Team Providers Care Jigger Machine Operator Name Role Phone Cheikh Flor MD Primary Care Provider Allergies Active Allergy Reactions Criticality Noted Date Comments Shellfish Derived Numbness 11/28/2016 Other Reaction(s): Numbness, tingling or swelling of the lips, tongue or mouth 2012 Medications albuterol HFA (PROAIR HFA ; PROVENTIL HFA ; VENTOLIN HFA) 90 mcg/actuation inhaler Inhale 2 Puffs into the lungs every 4 hours as needed for Cough or Wheezing. 3 Active docusate sodium (COLACE) 100 mg capsule Take 1 Capsule by mouth 2 times daily as needed for Constipation. 4 Active ferrous sulfate 325 mg (65 mg elemental iron) tablet Take 1 Tablet by mouth daily. 4 Active fexofenadine (WILLIAM) 180 mg tablet Take 1 Tablet by mouth daily. 4 Active fluticasone propionate (FLONASE) 50 mcg/actuation nasal spray 1 Grandin by Nasal route daily. 4 Active folic acid (FOLVITE) 1 mg tablet Take 1 Tablet by mouth daily. 4 Active omeprazole (PriLOSEC) [address] capsule Take 1 Capsule by mouth daily. 4 Active triamcinolone (KENALOG) 0.1 % cream Apply 1 Applicator topically 2 times daily. 4 Active Active Problems Problem Noted Date Diagnosed Date Class 1 obesity due to exces s calories without serious comorbidity with body mass index (BMI) of 31.0 to 31.9 in adult 02/25/2024 Allergic rhinitis 06/17/2023 Eczema 06/17/2023 Gastroesophageal reflux disease without esophagi tis 06/17/2023 Mild intermittent asthma without complication Obesity (BMI 30.0-34.9) 06/17/2023 Anxiety 10/31/2021 Helicobacter pylori (H. pylori) infection 2019 Hydronephrosis determined by ultrasound 11/29/19 17 Overview (02/25/2024): US 07/18/2010, mild to mod right side Encounters Date Type Department Care Team Description 05/13/2024 Telephone Adult Medicine [address] [id number] Cheikh Flor MD Covid-19 from Last 3 Months Immunizations Name Administration Dates Next Due DTaP (Infanrix) 6wks to less than 7yo ,04/25/1995,10/23/1994,07/23,05/23/1994 BYwI-XZI-FHA (Pentacel) 2mo to less than 5yo 10/23/1994,07/23/1994,05/23/1994 HPV, Quadrivalent 03/11/2007,12/12/2006,06/28/19 07 Hepatitis B Pediatric (Enger ix B; Recombivax HB) to less than 20 yo 04/25/1995,07/23/1994,05/23/1994 IPV Inactivated polio (Ipol) 6wks and older 10/23/1998,10/23/1994,07/23/1994,05/23 Influenza Quadravalent, MDCK , 0.5ml, preservative free (Flucelvax) 6mo and older 12/02/2023 MMR, measles mumps and rubel la Live (Priorix; M-M-R II) 12mo and older 10/23/1998,10/23/1994 Meningococcal Conjugate (Men veo) MenACWY 11yo to less than 19 yo 06/17/2014 Meningococcal MCV4P 06/27/2006 PPD Test 03/12/2014 Tdap Tetanus diptheria acell ular pertussis (Boostrix; Adacel) 7yo and older 05/09/2020,06/27/2006 Varicella live (Varivax) 12m o and older 07/28/2007,09/22/1997 Surgical History Surgery Date Site/Laterality Comments TONSILLECTOMY 08/23/2008 PROCEDURE: HISTORICAL TONSILLECTOMY SECTION PROCEDURE: AL DELIVERY ONLY Medical History Medical History Date Comments Depression 11/28/2016 DX:Depression Hydronephrosis determined by ultrasound 11/29/19 17 DX:Hydronephrosis determined by ultrasound; COMMENT: US 07/18/2010, mild to mod right side GERD (gastroesophageal reflux disease) DX:GERD (gastroesophageal reflux disease) Chronic anemia DX:Chronic anemi a Menorrhagia DX:Menorrhagia Mild asthma DX:Mild asthma Family History Medical History Relation Name Comments Asthma Brother : 07/05/1992 Asthma Father Hypertension Maternal Grandfather Hypertension Maternal Grandmother Hypertension Mother Other: Brain Tumor Mother followed by NS not removing it No Known Problems Paternal Grandfather Other: [place] Unknown Paternal Grandmother No Known Problems Sister : 1995 Breast cancer Neg Hx Colon cancer Neg Hx Diabetes Neg Hx Heart attack Neg Hx Ovarian cancer Neg Hx Stroke Neg Hx Relation Name Status Comments Brother Alive Father Alive Maternal Grandfather Alive Maternal Grandmother Alive Mother Alive Paternal Grandfather Alive Paternal Grandmother Sister Alive Social History Tobacco Use Types Packs/Day Years Used Date Smoking Tobacco: Never Smokeless Tobacco: Never Alcohol Use Standard Drinks/Week Comments No 0 (1 standard drink = 0.6 oz pur e alcohol) Comments Unknown Sex and Gender Information Value Date Recorded Sex Assigned at Not on file Legal Sex Female 4:50 AM EST Gender Identity Not on file Sexual Orientation Not on file Obstetrics History Last Filed Vital Signs Vital Sign Reading Time Taken Comments Blood Pressure 120/70 12/02/2023 4:17 PM EDT Pulse 82 12/02/2023 4:17 PM EDT Temperature - - Respiratory Rate - - Oxygen Saturation - - Inhaled Oxygen Concentration - - Weight 94.8 kg (209 lb) 12/02/2023 4:17 PM EDT Height 162.6 cm (5' 4 ) 12/02/2023 4:17 PM EDT Body Mass Index 35.87 12/02/2023 4:17 PM EDT Plan of Treatment Health Maintenance Due Date Last Done Comments Pneumococcal Vaccine: Pediatrics (0 to 5 Years) and At-Risk Patients (6 to 64 Years) (1 of 2 - PCV) 2012 Cervical Cancer Screening: Pap Smear 2014 Social Influencers of Health Screening 03/03/2022 COVID-19 Vaccine ( season) 2023 Cholesterol Screening (Lipid Panel) 08/19/2024 08/20/2019 Depression Screening 12/01/2024 12/02/2023 DTaP,Tdap,and Td Vaccines (8 - Td or Tdap) 05/09/2030 05/09/2020, 06/27/2006, 10/23/1998, Additional history exists HIB Vaccines Completed 10/23/1994, 03/1994, 05/23/1994 Hepatitis B Vaccines Completed 04/25/1995, 07/23/1994, 05/23/1994 IPV Vaccines Completed 10/23/1998, 03/1994, 10/23/1994, Additional history exists MMR Vaccines Completed 10/23/1998, 10/23/1994 HPV Vaccines Completed 03/11/2007, 11/24, 06/27/2006 Varicella Vaccines Completed 07/28/2007, 09/22/1997 Meningococcal ACWY Vaccine Aged Out 06/17/2014, No longer eligible based on patient's age to complete this topic HIV Screening Completed 05/09/2020 Hepatitis C Screening Completed 05/09/2020 Influenza Vaccine Completed 12/02/2023 Hepatitis A Vaccines Aged Out No long er eligible based on patient's age to complete this topic Meningococcal B Vacine Aged Out No lo nger eligible based on patient's age to complete this topic RSV Immunization Patients Under 20 months Aged Out No longer eligible based on patient's age to complete this topic Procedures Procedure Name Priority Date/Time Associated Diagnosis Comments DEPRESSION SCREENING Routine 12/02/2023 HEPATITIS C SCREENING Routine 05/09/2020 HIV SCREENING Routine 05/09/2020 LIPID PANEL Routine 08/20/2019 from Last 3 Months or Most Recently Relevant to Health Maintenance Results * Depression Screening (12/02/2023) Depression Screening abstracted [facility] Provider MD HEALTH MAINTENANCE Final Result * HIV Screening (05/09/2020) Pathologist [facility] HIV Screening abstracted [facility] Provider HEALTH MAINTENANCE Final Result * Hepatitis C Screening (05/09/2020) Hepatitis C Screening abstracted [facility] Provider HEALTH MAINTENANCE Final Result * (ABNORMAL) Lipid panel (08/20/2019) Pathologist [facility] LDL/HDL Ratio 4 0 - 4 Triglycerides 72 0 - 150 mg/dL Cholesterol 151 0 - 200 mg/dL HDL 35(A) >=40 mg/dL LDL Cholesterol 102(A) 0 - 100 mg/dL Blood Venous blood specimen / Unknown [facility] Provider LAB BLOOD ORDERABLES Rufina l Result from Last 3 Months or Most Recently Relevant to Health Maintenance Insurance [facility] [employer] Care Teams Jigger Machine Operator Relationship Specialty Start Date End Date Cheikh Flor MD [address] [place] [address] PCP - General Internal Medicine 10/31/21
--- NOTE | 2024-05-14 08:21 | AM.OFFWIN_ITS ---
Intake Vital Signs 05/14/24 08:25 Height 5 ft 4 in Weight 207 lb BMI 35.5 BP 110/68 Blood Pressure Location Lt brachial Position Sitting Pulse 86 Pulse Source Pulse Oximeter Pulse Oximetry (%) 100 Oxygen Delivery Method Room Air Intake Visit Reasons: EP-lower back pain Intake Note: Patient here for severe lower back pain that has been present for a couple of months and has been pushing it off. Patient Tobacco Use Status: Never used Tobacco Allergies shrimp [SHRIMP] Allergy (Unknown, Verified 05/14/24 08:26) LIP SWELLING Coconut Allergy (Unknown, Uncoded 05/14/24 08:) itching Oxycodone Allergy (Unknown, Uncoded 05/14/24 08:) itching Sea food Allergy (Unknown, Uncoded 05/14/24 08:) itching Do you need a note to return to daycare/school/sports/work: Yes HPI HPI Comments History of Present Illness Details History of Present Illness - The patient is a 28-year-old female pr esenting with chronic low back pain. - The pain is described as persistent an d ongoing for several months. - There is no history of trauma, bowel o r bladder incontinence associated with the pain. - Voltaren gel has been used without eff ect; physical therapy has not been pursued. - A past low back X-ray, performed five years ago, serves as her last imaging study. - The patient acknowledges her weight an d exercise as potential contributing factors. Physical Exam General: Cooperative, healthy appearing, comfortable, no acute distress and well developed Orientation: Patient oriented x3 Limitations: No limitations Head: Normal to inspection Ears: Hearing grossly normal bilaterally Nose: Normal Nxternal nose present Face and sinus: ormal facial exam Eyes: Appearance normal, both eyes and all related structures Neck: Normal visual inspection and Yes full ROM Respiratory: Normal respiratory effort and able to speak in complete sentences. Skin: No rashes or lesions noted Neuro: Patient oriented x3 Extremities: Normal to inspection [facility] Medical History Migraine with aura Acid reflux Anxiety Surgical History History of delivery History of gastric surgery Family History Father Diabetes Asthma Mother HTN (hypertension) Asthma Brother Asthma Social History Household Members Other:: son Housing: Apartment Alcohol intake: never Patient Tobacco Use Status: Never used Tobacco Current occupational status: employed and student Current occupation: [employer] Sexual orientation: Straight/Heterosexual Gender identity: Female Female Reproductive History Menstrual Age of Menarche: 8 Review of Systems Const All systems reviewed & are unremarkable except as noted in HPI and below Physical Exam Vital Signs: Last Vital Signs Pulse 86 05/14/24 08:25 BP 110/68 05/14/24 08:25 Pulse Ox 100 05/14/24 08:25 Oxygen Delivery Method Room Air 05/14/24 08:25 BMI result Body Mass Index 35.5 Back/Spine/Pelvis Cervical Spine: normal cervical lordosis, cervical ROM normal and No Cervical spine tenderness Thoracic/Lumbar Spine: paraspinal muscle tenderness bilaterally, thoraco-lumbar ROM limited, No thoracic spinal tenderness and No lumbar spinal tenderness Assessment & Plan Assessment & Plan (1) Low back pain: Code(s): M54.50 - Low back pain, unspecified Qualifiers: Chronicity: acute Back pain laterality: bilateral Sciatica presence: without sciatica Qualified Code(s): M54.50 - Low back pain, unspecified Plan: Plan The management of the patient's chronic low back pain includes obtaining a lumbar spine X-ray to rule out any structural issues. Meanwhile, I recommended the use of naproxen for short-term pain and inflammation control. We discussed the incorporation of regular physical activity and stretching exercises to alleviate musculoskeletal stiffness and potentially reduce pain. I advised the patient to follow up with her primary care provider to secure a referral for physical therapy, which would likely benefit her condition. Additionally, I informed her about indications for seeking immediate medical evaluation, such as the onset of bowel or bladder dysfunction. Patient was informed and verbally consented to the use of an ambient scribe for clinic note documentation during this visit. Orders: Orders XR lumbar spine 4V min Today M54.50 - Low back pain, unspecified Coding Level of Care Code New Pt Level 4 (24632) Diagnoses Acute bilateral low back pain without sciatica M54.50 Chronicity: acute Back pain laterality: bilateral Sciatica presence: without sciatica
[2024-05-14 08:25] VITALS: BP 110/68; PULSE 86; O2SAT 100; BMI 35.5
== END 2024-05-14 08:44 | disposition home or self-care (01) ==
PROVIDERS: PCP Internal Medicine; Visit Provider Physician Assistant
DX: M54.50 Low back pain, unspecified (principal)

== ENCOUNTER → 2024-05-14 08:10 | Outpatient (BNVA) | payer OTHER, SELFPAY | PROVIDERS: PCP Internal Medicine | DX: M54.50 Low back pain, unspecified (principal) | CPT/HCPCS: 99202 ==

== ENCOUNTER 2024-06-10 08:09 | Emergency (ER) | payer OTHER, SELFPAY ==
[2024-06-10] VITALS (8 sets, daily range): BP systolic 111–121; BP diastolic 58–78; PULSE 71–105; RESP 16–18; TEMP 36.1–36.6; O2SAT 99; BMI 35.6
[2024-06-10 08:29] LABS: MANUAL DIFF FLAG NO
[2024-06-10 08:43] LABS: Basophils Percent Auto 0.4 % (0-2); Eosinophils Absolute Auto 0.1 X10*3/uL (0.0-0.4); Eosinophils Percent Auto 2.5 % (0-4); Hematocrit 26.9 % (37.0-47.0); Hemoglobin 7.8 g/dl (12.0-16.0); Imm Gran Abs Auto 0.02 X10*3/uL (0.00-0.03); Imm Gran Pct Auto 0.4 % (0.0-0.4); Lymphocytes Absolute Auto 0.6 X10*3/uL (1.2-4.9); Lymphocytes Percent Auto 12.5 % (20-40); Mean Corpuscular Hemoglobin 18.7 pg (27.0-33.0); Mean Corpuscular Volume 64.5 fL (80.0-98.0); Mean Platelet Volume 9.8 fL (9.4-12.3); Monocytes Absolute Auto 0.7 X10*3/uL (0.1-1.2); Monocytes Percent Auto 13.9 % (2-11); Neutrophils Absolute Auto 3.4 x10*3/uL (2.0-8.3); Neutrophils Percent Auto 70.3 % (45-73); Platelet Count 284 X10*3/uL (160-400); Red Blood Count 4.17 X10*6/uL (4.20-5.50); Red Cell Distribution Width 19.1 % (11.0-16.0); White Blood Count 4.8 X10*3/uL (4.8-10.8)
[2024-06-10 08:51] LABS: Anion Gap 11 (12-20)
[2024-06-10 08:54] LABS: Alanine Aminotransferase 9 U/L (0-31); Albumin Level 4.3 g/dL (3.5-5.0); Alkaline Phosphatase 88 U/L (39-117); Aspartate Amino Transferase 18 U/L (5-31); Bilirubin Total 0.3 mg/dL (0.0-1.0); Blood Urea Nitrogen 15 mg/dL (9-16); Carbon Dioxide 23 mmol/L (22-29); Chloride 109 mmol/L (96-108); Creatinine Clr Calc Pharmacy 112.9; Estimated Glomerular Filt Rate > 60; Glucose Random 92 mg/dL (60-115); Potassium 3.7 mmol/L (3.3-5.1); Sodium 139 mmol/L (135-145); Total Protein 7.2 g/dL (6.5-8.0)
[2024-06-10] MEDS: 0.9 % Sodium Chloride 1,000 ML 999 ML IV ×2 (08:54→11:20)
[2024-06-10 09:03] LABS: HCG Quantitative < 2 mIU/mL
--- NOTE | 2024-06-10 10:01 | ED_ITS ---
HPI - Weakness General Chief complaint: Weakness Stated complaint: Dehydration, dizziness Time Seen by Provider: 06/10/24 08:20 Source: patient, RN notes reviewed and old records reviewed Mode of arrival: ambulatory History of Present Illness ED Provider: Marcela Calvo PA-C HPI Narrative: 28-year-old female with a past medical history of migraines, anxiety, iron- deficiency anemia requiring blood transfusion in the past associated with C- section, presenting to the ED complaining of generalized fatigue/weakness, lightheadedness, and feeling near syncopal x few days. Admits had menstruation last week which she feels exacerbated her symptoms. Denies any bleeding at present including vaginal bleeding, rectal bleeding, melena, hematemesis, headache, CP/SOB, nausea/vomiting. Related Data Home Medications ?Medication ?Instructions ?Recorded ?Confirmed famotidine 40 mg tablet 40 mg PO DAILY 10/14/20 11/15/23 omeprazole 40 mg capsule,delayed 40 mg PO DAILY 11/15/23 11/15/23 release Previous Rx's ?Medication ?Instructions ?Recorded olopatadine 0.1 % eye drops 1 drp ophthalmic (eye) BID #5 mL 04/13/22 (Pataday Twice Daily Relief) ferrous sulfate 324 mg (65 mg 324 mg PO BID 90 days #180 tabs 11/15/23 iron) tablet,delayed release meclizine 25 mg tablet 25 mg PO TID PRN dizziness 7 days 11/15/23 #21 tabs ondansetron HCl 4 mg tablet 4 mg PO Q8H PRN nausea and 11/15/23 vomiting 7 days #14 tabs Allergies Allergy/AdvReac Type Severity Reaction Status Date / Time shrimp [SHRIMP] Allergy Unknown LIP Verified 05/14/24 08:26 SWELLING pineapple Allergy Swelling Verified 06/10/24 08:15 Coconut Allergy Unknown itching Uncoded 05/14/24 08:26 Oxycodone Allergy Unknown itching Uncoded 05/14/24 08:26 Sea food Allergy Unknown itching Uncoded 05/14/24 08:26 Review of Systems 2 Review of Systems: Yes all other systems are reviewed and are negative Constitutional: Constitutional: Reports as per HPI Neurologic: Denies Abnormal speech present PMFSH Past Medical History Attestation statement: The following information was validated with the patient. Source: old records reviewed Medical History Migraine with aura Acid reflux Anxiety Surgical History History of delivery History of gastric surgery Family History Family History Father Diabetes Asthma Mother HTN (hypertension) Asthma Brother Asthma Social History Social History Household Members Other:: son Housing: Apartment Alcohol intake: never Patient Tobacco Use Status: Never used Tobacco Smoked in Last 30 Days: No Use of substances other than those prescribed or required for medical reasons: No Advance Directives: No Advance Directives Information Provided: No Patient : No Current occupational status: employed and student Current occupation: [employer] Sexual orientation: Straight/Heterosexual Gender identity: Female Physical Exam 2 Vital Signs: Vital Signs: Last Vital Signs Temp 97.9 F 06/10/24 10:03 Pulse 83 06/10/24 10:16 Resp 18 06/10/24 10:16 BP 121/76 06/10/24 10:16 Pulse Ox 99 06/10/24 10:16 O2 Del Method Room Air 06/10/24 10:16 BMI result Body Mass Index 35.6 Const: Other: pale General: cooperative, healthy appearing and no acute distress O rientation/consciousness: patient oriented x3 Limitations: no limitations HEENT: Head: Yes normal to inspection and Yes atraumatic Ears: hearing grossly normal bilaterally General nose exam: Normal external nose present Face and sinus: Yes normal facial exam Throat: Yes posterior oropharynx normal and Yes uvula midline Eyes: General: appearance normal, both eyes and all related structures EOM: EOMs intact bilaterally Neck: Neck: Yes normal visual inspection and Yes no meningeal signs Resp: Effort & Inspection: normal respiratory effort and no respiratory distress Auscultation: clear to auscultation bilaterally, no crackles and no wheezes Cardio: Rate: regular rate Heart sounds: S1 normal heart sound present and S2 normal heart sound present GI: Inspection: Yes normal to inspection Palpation (GI): Soft to palpation, nontender, no guarding and not rigid Skin: Rashes: no rashes Wounds: no wounds Neuro: General: patient oriented x3, tone normal, moves all extremities, no meningeal signs and CN's II-XI intact bilaterally Cranial nerves: Yes CN's II-XII intact bilaterally and Yes Bilaterally intact EOM present Cognition (Neuro): normal cognition Speech: No Abnormal speech present Motor exam (neuro): 5/5 motor strength present throughout Extrem: General: Yes normal to inspection Course Course Course Narrative: -1005--H&H 7.8/26.9, acute on chronically low. Labs otherwise reassuring. HCG negative. > no active bleeding. No indication for transfusion at this time. Will give 2L IVF & reassess -orthostatic vital signs negative. Troponin negative -UA negative. COVID-19 positive > patient states she had COVID 3 weeks ago, likely continuing to test positive rather than new infection > discussed importance of taking iron supplements with patient, states she has pills at pain. Recommended close PCP/hematology follow-up with repeat labs in 1 week. She reports symptomatic improvement at this time. Plan for discharge after 2 L IVF Results discussed with patient including worrisome signs and symptoms and strict return precautions, and when to return to the emergency department. They verbalized understanding and feel safe for discharge at this time. Medications Administered Discontinued Medications Generic Name Dose Route Start Last Admin Trade Name Freq PRN Reason Stop Dose Admin Acetaminophen 975 mg 06/10/24 11:21 06/10/24 11:46 Acetaminophen 325 Mg Tablet PO 06/10/24 11:22 975 mg ONCE ONE Administration Sodium Chloride 1,000 mls @ 999 mls/hr 06/10/24 08:45 06/10/24 11:02 Ns IV 06/10/24 09:45 Infused .Q1H1M MADAY Infusion Sodium Chloride 1,000 mls @ 999 mls/hr 06/10/24 10:15 06/10/24 11:20 Ns IV 06/10/24 11:15 999 mls/hr .Q1H1M MADAY Administration Medical Decision Making Medical Decision Making [facility] Narrative: 28-year-old female with a past medical history of migraines, anxiety, iron- deficiency anemia requiring blood transfusion in the past associated with C- section, presenting to the ED complaining of generalized fatigue/weakness, lightheadedness, and feeling near syncopal x few days. On exam mildly tachycardic, NAD, nontoxic appearing, appears mildly pale, exam otherwise nonfocal. Concern for acute on chronic anemia likely secondary to recent menstruation. Lower suspicion for acute GI bleed. Rule out metabolic abnormalities infectious etiology including viral illness. Rule out orthostasis. Lower suspicion for ACS, dissection, PE Plan: EKG, labs, UA, viral testing, orthostatics, IVF, re-evaluate Please refer to course for remaining clinical decision making, interpretation of labs/imaging results, and discussions with consultants and/or family members. Differential Diagnosis Differential Diagnoses: The differential diagnosis associated with the presentation includes As above Admission/Observation Consideration of admission/observation: Escalation of care including admission/observation considered Lab Data MDM Lab Attestation statement: I reviewed the patient's lab results. 06/10/24 08:24 06/10/24 08:24 Labs: Lab Results 06/10/24 06/10/24 06/10/24 Range/Units 08:24 08:52 10:12 WBC 4.8 (4.8-10.8) X10*3/uL RBC 4.17 L (4.20-5.50) X10*6/uL Hgb 7.8 L (12.0-16.0) g/dl Hct 26.9 L (37.0-47.0) % MCV 64.5 L (80.0-98.0) fL MCH 18.7 L (27.0-33.0) pg MCHC 29.0 L (31.0-35.0) g/dl RDW 19.1 H (11.0-16.0) % Plt Count 284 (160-400) X10*3/uL MPV 9.8 (9.4-12.3) fL Immature Gran % (Auto) 0.4 (0.0-0.4) % Neut % (Auto) 70.3 (45-73) % Lymph % (Auto) 12.5 L (20-40) % [place] % (Auto) 13.9 H (2-11) % Eos % (Auto) 2.5 (0-4) % Baso % (Auto) 0.4 (0-2) % Lymph # (Auto) 0.6 L (1.2-4.9) X10*3/uL [place] # (Auto) 0.7 (0.1-1.2) X10*3/uL Eos # (Auto) 0.1 (0.0-0.4) X10*3/uL Baso # (Auto) 0.0 (0.0-0.2) X10*3/uL Abs Immat Gran (auto) 0.02 (0.00-0.03) X10*3/uL Absolute Neuts (auto) 3.4 (2.0-8.3) x10*3/uL Absolute Nucleated RBC 0.000 (0.0-0.012) X10*3/uL Nucleated RBC % (auto) 0.0 (0.0-0.2) /100WBC Smear Path Review SEE NOTE Sodium 139 (135-145) mmol/L Potassium 3.7 (3.3-5.1) mmol/L Chloride 109 H (96-108) mmol/L Carbon Dioxide 23 (22-29) mmol/L Anion Gap 11 L (12-20) BUN 15 (9-16) mg/dL Creatinine 0.81 (0.5-1.4) mg/dL Estim Creat Clear Calc 112.9 Estimated GFR > 60 Random Glucose 92 (60-115) mg/dL Calcium 9.0 (8.4-10.2) mg/dL Magnesium 2.0 (1.6-2.6) mg/dL Total Bilirubin 0.3 (0.0-1.0) mg/dL AST 18 (5-31) U/L ALT 9 (0-31) U/L Alkaline Phosphatase 88 (39-117) U/L Troponin I High Sens < 2.7 (<3.5-17.0) ng/L Total Protein 7.2 (6.5-8.0) g/dL Albumin 4.3 (3.5-5.0) g/dL Beta HCG, Quant < 2 mIU/mL Urine Color Urine Appearance Urine pH (5.0-9.0) Ur Specific [place] (1.005-1.025) Urine Protein (Neg-Trace) mg/dL Urine Glucose (UA) (Negative) mg/dL Urine Ketones (Negative) mg/dL Urine Blood (Negative) Urine Nitrite (Negative) Ur Leukocyte Esterase (Negative) Influenza Type A (PCR) NEGATIVE (Negative) Influenza Type B (PCR) NEGATIVE (Negative) RSV RNA Qual (PCR) NEGATIVE (Negative) SARS-CoV-2 RNA (RT-PCR) POSITIVE A (Negative) Blood Type O Positive Antibody Screen NEGATIVE 06/10/24 Range/Units 10:33 WBC (4.8-10.8) X10*3/uL RBC (4.20-5.50) X10*6/uL Hgb (12.0-16.0) g/dl Hct (37.0-47.0) % MCV (80.0-98.0) fL MCH (27.0-33.0) pg MCHC (31.0-35.0) g/dl RDW (11.0-16.0) % Plt Count (160-400) X10*3/uL MPV (9.4-12.3) fL Immature Gran % (Auto) (0.0-0.4) % Neut % (Auto) (45-73) % Lymph % (Auto) (20-40) % [place] % (Auto) (2-11) % Eos % (Auto) (0-4) % Baso % (Auto) (0-2) % Lymph # (Auto) (1.2-4.9) X10*3/uL [place] # (Auto) (0.1-1.2) X10*3/uL Eos # (Auto) (0.0-0.4) X10*3/uL Baso # (Auto) (0.0-0.2) X10*3/uL Abs Immat Gran (auto) (0.00-0.03) X10*3/uL Absolute Neuts (auto) (2.0-8.3) x10*3/uL Absolute Nucleated RBC (0.0-0.012) X10*3/uL Nucleated RBC % (auto) (0.0-0.2) /100WBC Smear Path Review Sodium (135-145) mmol/L Potassium (3.3-5.1) mmol/L Chloride (96-108) mmol/L Carbon Dioxide (22-29) mmol/L Anion Gap (12-20) BUN (9-16) mg/dL Creatinine (0.5-1.4) mg/dL Estim Creat Clear Calc Estimated GFR Random Glucose (60-115) mg/dL Calcium (8.4-10.2) mg/dL Magnesium (1.6-2.6) mg/dL Total Bilirubin (0.0-1.0) mg/dL AST (5-31) U/L ALT (0-31) U/L Alkaline Phosphatase (39-117) U/L Troponin I High Sens (<3.5-17.0) ng/L Total Protein (6.5-8.0) g/dL Albumin (3.5-5.0) g/dL Beta HCG, Quant mIU/mL Urine Color Yellow Urine Appearance Clear Urine pH 5.5 (5.0-9.0) Ur Specific [place] 1.015 (1.005-1.025) Urine Protein Negative (Neg-Trace) mg/dL Urine Glucose (UA) Negative (Negative) mg/dL Urine Ketones Negative (Negative) mg/dL Urine Blood Negative (Negative) Urine Nitrite Negative (Negative) Ur Leukocyte Esterase Negative (Negative) Influenza Type A (PCR) (Negative) Influenza Type B (PCR) (Negative) RSV RNA Qual (PCR) (Negative) SARS-CoV-2 RNA (RT-PCR) (Negative) Blood Type Antibody Screen Independent Interpretation I performed an independent interpretation of an: EKG Radiology Impression Discussion of test interpretation with radiology: I have reviewed the radiologist's reading. External Record Review External record reviewed: Inpatient record, Office record, Outpatient record, Prior outpatient labs, Prior outpatient radiology, Primary care record and Outside ED record Tests considered The following testing was considered but not selected: As above Chronic Conditions Patient?s care impacted by: Other (Anemia) Social Determinants Patient?s care significantly limited by Social Determinants of Health including: Other Social Determinant of Health Discharge Plan Discharge Clinical Impression: Pre-syncope Anemia Qualifiers: Anemia type: iron deficiency Iron deficiency anemia type: unspecified iron deficiency Qualified Code(s): D50.9 - Iron deficiency anemia, unspecified Patient Disposition: Home, Self-Care Instructions: Lightheadedness (ED), Anemia (ED) Additional Instructions: Your blood work is reassuring Please 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 Take a probiotic and increase fiber in your diet to avoid constipation If her symptoms persist or worsen, you have continued lightheadedness, dizziness, chest pain, shortness of breath, develop any active bleeding return to the ED immediately Prescriptions: No Action meclizine 25 mg tablet 25 mg PO TID PRN (Reason: dizziness) 7 Days Qty: 21 0RF ondansetron HCl 4 mg tablet 4 mg PO Q8H PRN (Reason: nausea and vomiting) 7 Days Qty: 14 0RF ferrous sulfate 324 mg (65 mg iron) tablet,delayed release (DR/EC) 324 mg PO BID 90 Days Qty: 180 0RF olopatadine [Pataday Twice Daily Relief] 0.1 % drops 1 drp ophthalmic (eye) BID Qty: 5 0RF Rx Instructions: separate doses by at least 6-8 hours omeprazole 40 mg capsule,delayed release(DR/EC) 40 mg PO DAILY famotidine 40 mg tablet 40 mg PO DAILY Referrals: Cheikh Flor MD [Primary Care Provider] - 5 days Print Language: Slovenian
--- NOTE | 2024-06-10 10:06 | ECG_ITS ---
Test Reason : weakness Blood Pressure : */* mmHG Vent. Rate : 78 BPM Atrial Rate : 78 BPM P-R Int : 138 ms QRS Dur : 78 ms QT Int : 366 ms P-R-T Axes : 48 20 14 degrees QTcB Int : 417 ms Normal sinus rhythm with sinus arrhythmia Normal ECG When compared with ECG of 12-Nov-2022 12:30, No significant change was found Referred By: Marcela Calvo Electronically Signed By: Mervin Lopez
[2024-06-10 10:44] LABS: Appearance Urine Clear; Color Urine Yellow; Glucose Urine UA Negative (Negative); Leukocyte Esterase Urine Negative (Negative); Nitrite Urine Negative (Negative); PH 5.5 (5.0-9.0); Specific Gravity - Urine 1.015 (1.005-1.025); Urine Blood Negative (Negative); Urine Ketones Negative (Negative); Urine Protein Negative (Neg-Trace)
[2024-06-10 10:53] LABS: Troponin-I High Sensitivity < 2.7 ng/L (<3.5-17.0)
[2024-06-10 11:01] LABS: Influenza A PCR NEGATIVE (Negative); Influenza B PCR NEGATIVE (Negative); Resp Syncy Virus RNA Qual PCR NEGATIVE (Negative); SARS COV2 PCR INHOUSE POSITIVE (Negative)
[2024-06-10] MEDS: Acetaminophen 325 MG TABLET 975 MG PO (11:46)
== END 2024-06-10 13:23 | disposition home or self-care (01) ==
PROVIDERS: Physician Assistant; Emergency Provider Emergency Medicine; PCP Internal Medicine
DX: D50.9 Iron deficiency anemia, unspecified (principal); R53.1 Weakness; E86.0 Dehydration; R42 Dizziness and giddiness; I49.8 Other specified cardiac arrhythmias; Z79.899 Other long term (current) drug therapy; Z03.818 Encounter for observation for suspected exposure to other biological agents ruled out
CPT/HCPCS: 0241U; 36415; 80053; 81003; 83735; 84484; 84702; 85025; 86850; 86900; 86901; 93005; 96360; 96361; 99284; 99285

== ENCOUNTER → 2024-06-10 10:06 | Outpatient (BNV) | payer OTHER, SELFPAY | PROVIDERS: Emergency Provider Emergency Medicine; PCP Internal Medicine; Visit Provider Internal Medicine Cardiovascular Disease | DX: R53.1 Weakness (principal) | CPT/HCPCS: 93010 ==

== ENCOUNTER 2025-02-08 09:40 | Emergency (ER) | payer OTHER, SELFPAY ==
[2025-02-08 09:43] VITALS: BP 144/90; PULSE 95; RESP 16; TEMP 36.6; O2SAT 98; BMI 32.6
[2025-02-08 09:57] VITALS: BP 126/66; PULSE 96; RESP 16; TEMP 36.6; O2SAT 100
[2025-02-08 10:02] VITALS: BP 126/66; PULSE 96; RESP 16; TEMP 36.6; O2SAT 100
--- NOTE | 2025-02-08 10:03 | PC.NURSE ---
Patient reports to ED c/o ABD discomfort rated 5/10 Patient is 6-7 weeks LKMP Oct 5, denies bleedin gor spotting Patient has been feeling nauseous for about 3 weeks and reports using the restroom more frequently #1 and #2 no diarrhea Patient reports poor intake d/t feeling nauseous VSS and up to date Provider in to see patient Plan of care on going
--- NOTE | 2025-02-08 10:07 | ED_ITS ---
HPI - General Adult General Chief complaint: Nausea/Vomiting/Diarrhea Stated complaint: Nausea Vomiting Diarrhea Time Seen by Provider: 02/08/25 10:07 Source: patient Mode of arrival: ambulatory Limitations: no limitations History of Present Illness ED Provider: Yara Plaza PA-C HPI narrative: Patient is a 29 year old assigned female at with a history of anemia and presenting to the emergency department today with nausea and vomiting in early . Patient states that she is approximately 6-7 weeks and is having nausea / vomiting. Patient denies any vaginal bleeding or abdominal pain. Patient states that she has an OBGYN through [facility] but has not yet be seen by them. Patient denies any other complaints at this time. Related Data Home Medications ?Medication ?Instructions ?Recorded ?Confirmed famotidine 40 mg tablet 40 mg PO DAILY 10/14/2010/24 omeprazole 40 mg capsule,delayed 40 mg PO DAILY 11/15/23 release Previous Rx's ?Medication ?Instructions ?Recorded olopatadine 0.1 % eye drops 1 drp ophthalmic (eye) BID #5 mL 04/13/22 (Pataday Twice Daily Relief) ferrous sulfate 324 mg (65 mg 324 mg PO BID 90 days #1 80 tabs 11/15/23 iron) tablet,delayed release meclizine 25 mg tablet 25 mg PO TID PRN dizziness 7 days 11/15/23 #21 tabs ondansetron HCl 4 mg tablet 4 mg PO Q8H PRN nausea and 11/15/23 vomiting 7 days #14 tabs pyridoxine (vitamin B6) 10 mg 10 mg PO DAILY #14 tabs 02/08/25 tablet Allergies Allergy/AdvReac Type Severity Reaction Status Date / Time shrimp (SHRIMP) Allergy Unknown LIP Verified 02/08/25 09:46 SWELLING pineapple Allergy Swelling Verified 02/08/25 09:46 Coconut Allergy Unknown itching Uncoded 02/08/25 09:46 Oxycodone Allergy Unknown itching Uncoded 02/08/25 09:46 Sea food Allergy Unknown itching Uncoded 02/08/25 09:46 Review of Systems 2 Constitutional: Constitutional: Reports as per HPI Eyes: Eyes: Reports as per HPI ENT: Reports as per HPI Cardiovascular: Cardiovascular: Reports as per HPI Respiratory: Respiratory: Reports as per HPI Gastrointestinal: Gastrointestinal: Reports as per HPI Genitourinary: Genitourinary: Reports as per HPI Musculoskeletal: Musculoskeletal: Reports as per HPI Integumentary/Breasts: Skin/Breast: Reports as per HPI Neurologic: Reports as per HPI Psychiatric: Psychiatric: Reports as per HPI Endocrine: Endocrine: Reports as per HPI Hematologic/Lymphatic: Hematologic/Lymphatic: Reports as per HPI Allergic/Immunologic: Allergic/Immunologic: Reports as per HPI [facility] Past Medical History Attestation statement: The following information was validated with the patient. Source: old records reviewed and nursing notes reviewed Medical History Migraine with aura Acid reflux Anxiety Surgical History History of delivery History of gastric surgery Family History Family History Father Diabetes Asthma Mother HTN (hypertension) Asthma Brother Asthma Social History Social History Household Members Other:: son Housing: Apartment Alcohol intake: never Patient Tobacco Use Status: Never used Tobacco Smoked in Last 30 Days: No Use of substances other than those prescribed or required for medical reasons: No Advance Directives: No Advance Directives Information Provided: No Do you have a plan to hurt others: No Plan Patient : Yes Current occupational status: employed and student Current occupation: [employer] Sexual orientation: Straight/Heterosexual Gender identity: Female Physical Exam ED Vital Signs: Vital Signs - 24 hr 02/08/25 09:43 02/08/25 09:57 02/08/25 10:02 Temperature 98 F 97.8 F 97.8 F Pulse Rate 95 96 96 Respiratory Rate 16 16 16 Blood Pressure 144/90 H 126/66 126/66 Pulse Oximetry 98 100 100 Oxygen Delivery Method Room Air Room Air Room Air 02/08/25 12:08 Temperature 97.8 F Pulse Rate 96 Respiratory Rate 16 Blood Pressure 126/66 Pulse Oximetry 100 Oxygen Delivery Method Room Air BMI result Body Mass Index 32.6 Const General: cooperative, no acute distress, alert and awake Nutritional Appearance: well nourished Orientation/consciousness: patient oriented x3 HENMT Head: Yes normal to inspection and Yes atraumatic Ears: hearing grossly normal bilaterally and external ears normal General nose exam: Normal external nose present, no nasal discharge noted and no epistaxis Face and sinus: Yes normal facial exam, No abrasion and No laceration Mouth: Normal oral and palatal mucosa present, no drooling and no muffled voice Eyes General: appearance normal, both eyes and all related structures Periorbital: periorbital findings normal Eyelids: Yes eyelids normal Conjunctivae: conjunctivae normal Pupils: Equal, round and reactive pupils present EOM: EOMs intact bilaterally Neck Neck: Yes normal visual inspection and Yes full ROM Resp Effort & Inspection: normal respiratory effort and able to speak in complete sentences Neuro General: patient oriented x3, moves all extremities and CN's II-XI intact bilaterally Cranial nerves: Yes Equal, round and reactive pupils present Cognition (Neuro): normal cognition Extrem General: Yes normal to inspection, Yes full ROM and Yes capillary refill normal Psych Appearance: grossly normal Mental Status: mental status grossly normal Affect: normal affect Attitude: cooperative Thought process: Normal thought process present Thought content: Normal thought content present Insight: Good insight present (Psych) Medications Administered Discontinued Medications Generic Name Dose Route Start Last Admin Trade Name Freq PRN Reason Stop Dose Admin Sodium Chloride 1,000 mls @ 999 mls/hr 02/08/25 10:15 02/08/25 12:08 Ns IV 02/08/25 11:15 Infused .Q1H1M MADAY Infusion Ondansetron HCl 4 mg 02/08/25 10:08 02/08/25 10:33 Ondansetron Hcl 4 Mg/2 Ml Vial IVPUSH 02/08/25 10:09 4 mg ONCE ONE Administration Medical Decision Making Medical Decision Making [facility] Narrative: Patient is a 29 year old assigned female at with a history of anemia and presenting to the emergency department today with nausea and vomiting in early . Patient's physical exam was as noted in the physical exam portion of this note. Patient's blood work showed an expectedly elevated HCG but otherwise unremarkable. Patient's urine showed no acute process. Patient received IV Zofran + Fluids which, upon re-evaluation, she stated it helped her symptoms significantly. I explained my physical exam findings as well as all test results to the patient. I answered all questions asked by the patient. I stressed the importance of the patient taking her medication as directed (either prescribed or as the over the counter packaging recommends). I stressed the importance of the patient following up with her primary care provider and her OBGYN. I stressed the importance of the patient returning to the emergency department immediately if her symptoms were to worsen or if she were to develop any vaginal discharge, vaginal bleeding, dizziness, shortness of breath, difficulty breathing, chest pain, blurry vision, loss of vision, nausea, vomiting, abdominal pain, fever, chills, back pain, or any other complaints. Patient verbalized agreement and understanding with this treatment plan and discharge. Differential Diagnosis Differential Diagnoses: The differential diagnosis associated with the presentation includes Nausea Vomiting Admission/Observation Consideration of admission/observation: Escalation of care including admission/observation considered Patient would have been admitted to the hospital had her work up had any findings where hospital admission was appropriate and her clinical presentation warranted hospital admission. Lab Data [facility] Lab Attestation statement: I reviewed the patient's lab results. My interpretation of these results are in the [facility] Rationale portion of this note. 02/08/25 10:31 02/08/25 10:31 Labs: Lab Results 02/08/25 02/08/25 Range/Units 10:31 11:10 WBC 7.3 (4.8-10.8) X10*3/uL RBC 4.36 (4.20-5.50) X10*6/uL Hgb 8.4 L (12.0-16.0) g/dl Hct 29.8 L (37.0-47.0) % MCV 68.3 L (80.0-98.0) fL MCH 19.3 L (27.0-33.0) pg MCHC 28.2 L (31.0-35.0) g/dl RDW 22.9 H (11.0-16.0) % Plt Count 270 (160-400) X10*3/uL MPV Not Reportable Immature Gran % (Auto) 0.3 (0.0-0.4) % Neut % (Auto) 76.3 H (45-73) % Lymph % (Auto) 12.4 L (20-40) % Davidson % (Auto) 7.4 (2-11) % Eos % (Auto) 2.9 (0-4) % Baso % (Auto) 0.7 (0-2) % Lymph # (Auto) 0.9 L (1.2-4.9) X10*3/uL Davidson # (Auto) 0.5 (0.1-1.2) X10*3/uL Eos # (Auto) 0.2 (0.0-0.4) X10*3/uL Baso # (Auto) 0.1 (0.0-0.2) X10*3/uL Abs Immat Gran (auto) 0.02 (0.00-0.03) X10*3/uL Absolute Neuts (auto) 5.6 (2.0-8.3) x10*3/uL Absolute Nucleated RBC 0.000 (0.0-0.012) X10*3/uL Nucleated RBC % (auto) 0.0 (0.0-0.2) /100WBC Sodium 138 (135-145) mmol/L Potassium 3.8 (3.3-5.1) mmol/L Chloride 109 H (96-108) mmol/L Carbon Dioxide 22 (22-29) mmol/L Anion Gap 11 L (12-20) BUN 13 (9-16) mg/dL Creatinine 0.69 (0.5-1.4) mg/dL Estim Creat Clear Calc 125.5 Estimated GFR > 60 Random Glucose 89 (60-115) mg/dL Calcium 9.3 (8.4-10.2) mg/dL Magnesium 2.0 (1.6-2.6) mg/dL Total Bilirubin 0.3 (0.0-1.0) mg/dL AST 17 (5-31) U/L ALT 16 (0-31) U/L Alkaline Phosphatase 76 (39-117) U/L Total Protein 7.2 (6.5-8.0) g/dL Albumin 4.7 (3.5-5.0) g/dL Beta HCG, Quant 754260 mIU/mL Urine Color Yellow Urine Appearance Clear Urine pH 5.5 (5.0-9.0) Ur Specific [place] >= 1.030 H (1.005-1.025) Urine Protein Trace (Neg-Trace) mg/dL Urine Glucose (UA) Negative (Negative) mg/dL Urine Ketones Trace (Negative) mg/dL Urine Blood Negative (Negative) Urine Nitrite Negative (Negative) Ur Leukocyte Esterase Negative (Negative) Tests considered The following testing was considered but not selected: I considered obtaining an US of the patient's fetus however, the patient's clinical presentation did not warrant this at this time. Discharge Plan Discharge Clinical Impression: , Nausea & vomiting Patient Disposition: Home, Self-Care Instructions: (ED), Acute Nausea and Vomiting (DC) Additional Instructions: Your work up today was reassuring there is no EMERGENT process for your symptoms. Please follow up with your OBGYN for continued pre-alessandro care. Please continue taking your pre-alessandro vitamin. IF you are prescribed home medications and/or you are taking over the counter medications at home - it is very important you continue to do so as prescribed / directed unless told otherwise. Follow up with your primary care provider. Return to the emergency department immediately if your symptoms worsen or if you develop any numbness, tingling, dizziness, shortness of breath, difficulty breathing, chest pain, blurry vision, loss of vision, nausea, vomiting, abdominal pain, fever, chills, back pain, or any other complaints. Please see the information below about our Patient Portal. If you are not yet enrolled in the [facility] Patient Portal, you will receive an enrollment email invitation following your visit to any [facility] care setting. You may also self-enroll in the Patient Portal by visiting our website: [email or web address] The following information is required to access the Patient Portal: - Your [facility] Medical Record Number - Your personal home email address (must match what is in your electronic medical record, Registration staff can assist with this) - Name - Date of Capabilities of the Patient Portal: - Message some providers - View upcoming appointments - Access your health summary, medical history, and visit history - View current conditions and allergies - View procedure and lab results - View your medications, including guidelines, side effects, and precautions - Complete pre-appointment questionnaires requested by your provider - Ready summary reports of your office visits and procedures To access the Patient Portal Mobile [employer], follow these directions: - Search [employer] in the [employer] Store or Google Play Store - Download the [employer] - Search for [facility] - Enter your login/password Prescriptions: New pyridoxine (vitamin B6) 10 mg tablet 10 mg PO DAILY Qty: 14 0RF No Action meclizine 25 mg tablet 25 mg PO TID PRN (Reason: dizziness) 7 Days Qty: 21 0RF ondansetron HCl 4 mg tablet 4 mg PO Q8H PRN (Reason: nausea and vomiting) 7 Days Qty: 14 0RF ferrous sulfate 324 mg (65 mg iron) tablet,delayed release (DR/EC) 324 mg PO BID 90 Days Qty: 180 0RF olopatadine [Pataday Twice Daily Relief] 0.1 % drops 1 drp ophthalmic (eye) BID Qty: 5 0RF Rx Instructions: separate doses by at least 6-8 hours omeprazole 40 mg capsule,delayed release(DR/EC) 40 mg PO DAILY famotidine 40 mg tablet 40 mg PO DAILY Referrals: Cheikh Flor MD [Primary Care Provider, Internal Medicine] Stand Alone Forms: Work/School Release Interventions: ED Discharge Assessment Last Done: 02/08/25 12:08 Discharge Date/Time: 02/08/25 12:09 Print Language: Maori
[2025-02-08 10:39] LABS: MANUAL DIFF FLAG NO
[2025-02-08 10:45] LABS: Hematocrit 29.8 % (37.0-47.0); Hemoglobin 8.4 g/dl (12.0-16.0); Imm Gran Abs Auto 0.02 X10*3/uL (0.00-0.03); Imm Gran Pct Auto 0.3 % (0.0-0.4); Lymphocytes Absolute Auto 0.9 X10*3/uL (1.2-4.9); Mean Corpuscular HGB Conc 28.2 g/dl (31.0-35.0); Mean Corpuscular Hemoglobin 19.3 pg (27.0-33.0); Mean Corpuscular Volume 68.3 fL (80.0-98.0); NRBC Abs Auto 0.000 X10*3/uL (0.0-0.012); NRBC Pct Auto 0.0 /100WBC (0.0-0.2); Platelet Count 270 X10*3/uL (160-400); Red Blood Count 4.36 X10*6/uL (4.20-5.50); White Blood Count 7.3 X10*3/uL (4.8-10.8)
[2025-02-08 11:03] LABS: Alanine Aminotransferase 16 U/L (0-31); Albumin Level 4.7 g/dL (3.5-5.0); Alkaline Phosphatase 76 U/L (39-117); Anion Gap 11 (12-20); Aspartate Amino Transferase 17 U/L (5-31); Blood Urea Nitrogen 13 mg/dL (9-16); Calcium 9.3 mg/dL (8.4-10.2); Carbon Dioxide 22 mmol/L (22-29); Chloride 109 mmol/L (96-108); Creatinine Clr Calc Pharmacy 125.5; Estimated Glomerular Filt Rate > 60; Magnesium 2.0 mg/dL (1.6-2.6); Potassium 3.8 mmol/L (3.3-5.1); Sodium 138 mmol/L (135-145); Total Protein 7.2 g/dL (6.5-8.0)
[2025-02-08 11:23] LABS: Appearance Urine Clear; Glucose Urine UA Negative (Negative); PH 5.5 (5.0-9.0); Specific Gravity - Urine >= 1.030 (1.005-1.025)
[2025-02-08 12:08] VITALS: BP 126/66; PULSE 96; RESP 16; TEMP 36.6; O2SAT 100
--- OUTSIDE RECORDS SUMMARY | 2025-02-08 20:57 | XMS_ITS | Clinical Summary ---
Author Organization [facility] Address [address] [place] [phone] Phone Care Team Providers Care Process Design Engineer Name Role Phone Cheikh Flor MD Primary Care Provider Allergies Active Allergy Reactions Criticality Noted Date Comments Shellfish Containing Products 11/28/2016 Other Reaction(s): Numbness, tingling or swelling of the lips, tongue or mouth 2012 Medications omeprazole (PRILOSEC) 20 MG tablet Take 40 mg by mouth daily. Active Family History Medical History Relation Comments Diabetes Father Hypertension Mother Relation Status Comments Father Alive Mother Alive Social History Tobacco Use Types Packs/Day Years Used Date Smoking Tobacco: Never Smokeless Tobacco: Never Tobacco Cessation:Counseling Given: Not Answered Alcohol Use Standard Drinks/Week Comments Not Currently 0 (1 standard drink = 0.6 oz pur e alcohol) Education Answer Date Recorded Are you interested in more education? Not on cm e 07/20/2022 Are you concerned about learning? Not on file 07/20/2022 No 07/20/2022 No 07/20/2022 Digital Access Answer Date Recorded No 08/20/2022 No 08/20/2022 Reliable internet access at home? Not on file 08/20/2022 Device with a working camera? Not on file Comments Unknown Sex and Gender Information Value Date Recorded Sex Assigned at Not on file Legal Sex Female 8:55 PM EDT Gender Identity Not on file Sexual Orientation Not on file Last Filed Vital Signs Vital Sign Reading Time Taken Comments Blood Pressure 99/53 07/18/2023 9:40 AM EDT Pulse 67 07/18/2023 9:40 AM EDT Temperature - - Respiratory Rate - - Oxygen Saturation - - Inhaled Oxygen Concentration - - Weight 93.4 kg (205 lb 12.8 oz) 07/18/2023 9:40 AM EDT Height 156.2 cm (5' 1.5 ) 07/18/2023 9:40 AM EDT Body Mass Index 38.26 07/18/2023 9:40 AM EDT Plan of Treatment Health Maintenance Due Date Last Done Comments DEPRESSION SCREENING 2005 HEPATITIS C SCREENING 07/25/2011 HIV ONE-TIME SCREENING (18-6 5 YEARS) 07/25/2011 PAP SMEAR 2014 SMOKING STATUS SCREENING (On ce After 26 Yrs) 07/25/2019 INFLUENZA VACCINE (#1) 2024 COVID-19 VACCINE (2024-2 6 season) 2024 Adult Td,Tdap Booster 05/09/2030 05/09/2020 , 06/27/2006 HEPATITIS A VACCINES Aged Out No long er eligible based on patient's age to complete this topic HIB VACCINES Aged Out No longer eligi ble based on patient's age to complete this topic IPV VACCINES Aged Out No longer eligi ble based on patient's age to complete this topic MENINGOCOCCAL VACCINES (ACWY) Aged Out No longer eligible based on patient's age to complete this topic MENINGOCOCCAL VACCINES (B) Aged Out N o longer eligible based on patient's age to complete this topic PNEUMOCOCCAL VACCINES (0-49 years) Aged Out No longer eligible b ased on patient's age to complete this topic Medical Devices Not on file Insurance [facility] [employer] [facility] [employer] [facility] [place] [address] [place] [address] [employer] [place] [address] [place] [address] [employer] Care Teams Process Design Engineer Relationship Specialty Start Date End Date Cheikh Flor MD PCP - General Internal Medicine 07/01/23 Additional Source Comments The information contained in this document represents components of the legal health record. It is not the complete legal health record.[facility]
--- OUTSIDE RECORDS SUMMARY | 2025-02-08 20:58 | XMS_ITS | Clinical Summary ---
Author Organization [employer] [facility] Address [address] [place] [address] Care Team Providers Care Innersole Fitter Name Role Phone Wing Coley MD Primary Care Provider [phone] Allergies Active Allergy Reactions Criticality Noted Date [...] 82 02/28/2021 3:14 PM EST Temperature 36.8 C (98.3 F) 02/28/2021 3:14 PM EST Respiratory Rate - - Oxygen Saturation 99% [...] Screening (Pap Smear) 2014 Influenza Vaccine (#1) 2024 DTap / Tdap / Td (8 - Td or Tdap) 05/09/2030 05/09/2020, 06/27/2006, 10/23/1998, Additional history exists Pneumococcal Vaccine Aged Out No long er eligible based on patient's age to complete this topic RSV Ped < 20 months Aged Out No longe r eligible based on patient's age to complete this topic Care Teams Innersole Fitter Relationship Specialty Start Date End Date Wing Coley MD [address] [place] [address] PCP - General Internal Medicine 02/02/21
--- OUTSIDE RECORDS SUMMARY | 2025-02-08 20:58 | XMS_ITS | Clinical Summary ---
Author Organization [facility] [address] [place] [address] [place] [phone] Phone Care Team Providers Care Panel Maker Name Role Phone Cheikh Flor MD Primary Care Provider Allergies Active Allergy Reactions Criticality Noted Date Comments Shellfish Derived Numbness 11/28/2016 Other Reaction(s): Numbness, tingling or swelling of the lips, tongue or mouth 2011 Medications albuterol HFA (PROAIR HFA ; PROVENTIL HFA ; VENTOLIN HFA) 90 mcg/actuation inhaler Inhale 2 Puffs into the lungs every 4 hours as needed for Cough or Wheezing. 3 Active fexofenadine (WILLIAM) 180 mg tablet Take 1 Tablet by mouth daily. 4 Active triamcinolone (KENALOG) 0.1 % cream Apply 1 Applicator topically 2 times daily. 4 Active SUMAtriptan (IMITREX) 25 mg tablet Take 1 tablet (25 mg total) by mouth 1 (one) time if needed for migraine. May repeat dose once in 2 hours if no relief. Do not exceed 2 doses in 24 hours. 27 tablet 3 5 08/04/19 26 Active ferrous sulfate 325 mg (65 mg elemental iron) tablet Take 1 tablet (325 mg total) by mouth 1 (one) time each day. 90 tablet 1 5 Active folic acid (FOLVITE) 1 mg tablet Take 1 tablet (1,000 mcg total) by mouth 1 (one) time each day. 90 tablet 1 5 Active aspirin-acetami nophen-caffeine (Headache Relief, CSD-ihgl-nqb,) 250-250-65 mg per tablet TAKE 1 TABLET BY MOUTH EVERY 6 (SIX) HOURS IF NEEDED FOR HEADACHES FOR UP TO 10 DAYS. 30 tablet 5 Active tirzepatide, weight loss, (Zepbound) 2.5 mg/0.5 mL injectionIndica tions:Class 2 severe obesity due to excess calories with serious comorbidity and body mass index (BMI) of 36.0 to 36.9 in adult Inject 0.5 mL (2.5 mg total) under the skin every 7 (seven) days. 2 mL 1 5 Active fluticasone propionate (FLONASE) 50 mcg/actuation nasal spray SPRAY 1 SPRAY BY NASAL ROUTE EVERY DAY 32 mL 2 5 Active docusate sodium (COLACE) 100 mg capsule TAKE 1 CAPSULE BY MOUTH TWICE A DAY NEEDED FOR CONSTIPATION 180 capsule 1 5 Active omeprazole (PriLOSEC) [address] capsule TAKE 1 CAPSULE BY MOUTH EVERY DAY 90 capsule 1 5 Active Active Problems Problem Noted Date Diagnosed Date Iron deficiency anemia secon jazmin to inadequate dietary iron intake 10/23/2024 Iron deficiency anemia due to chronic blood loss 10/23/2024 Class 1 obesity due to exces s [...] Encounters Date Type Department Care Team Description 12/08/2024 Telephone Adult Medicine [address] [phone] Cheikh Flor MD 12/03/2024 1:00 PM EDT Office Visit Adult Medicine [address] [phone] Vera Medina PA Class 2 severe obesity due to excess calories with serious comorbidity and body mass index (BMI) of 36.0 to 36.9 in adult ([facility] V24, [facility] V28) (Primary Dx) from Last 3 Months Immunizations Immunization Administration Dates Next Due DTaP (Infanrix) 6wks to less than 7yo ,04/25/1995,10/23/1994,07/23,05/23/1994 [id number] (Pentacel) 2mo to less than 5yo 10/23/1994,07/23/1994,05/23/1994 [...] TONSILLECTOMY 08/23/2008 PROCEDURE: HISTORICAL TONSILLECTOMY SECTION PROCEDURE: [place] DELIVERY ONLY Medical History Medical History Date [...] Not Answered Alcohol Use Standard Drinks/Week Comments No 0 (1 standard drink = 0.6 oz pur e alcohol) Housing Instability Answer Date Recorde d Are you worried that in the next 2 months you may not have stable housing? No 12/03/2024 Food Access & Nutrition Answer Date Rec orded Do you have access to a vari ety of food including fruits and vegetables? Yes 12/03/2024 Access to Healthcare Answer Date Record ed Within the last 3 months, ho w many times did you visit the emergency department for your medical care? 0 12/03/2024 Health Literacy Answer Date Recorded How often do you need to hav e someone help you when you read instructions, pamphlets, or other written material from your doctor or pharmacy? Never 12/03/2024 Caregiver: How often do you need to have someone help you when you read instructions, pamphlets, or other written material from your doctor or pharmacy? Not on file 12/03/2024 Financial Risk Answer Date Recorded How hard is it for you to pa y for the very basics like food, housing, medical care, and air conditioning / heating? Not very hard 12/03/2024 Transportation Answer Date Recorded Has the lack of transportati on kept you from meetings, work, or from getting things needed for daily living? No Has the lack of transportati on kept you from medical appointments or from getting medications? No 12/03/2024 Social Isolation Answer Date Recorded How often do you feel lonely or isolated from th ose around you? Rarely 12/03/2024 Food Risk Answer Date Recorded Within the past 12 months we worried whether our food would run out before we got money to buy more. Never true 12/03/2024 Within the past 12 months th e food we bought just didn't last and we didn't have money to get more. Never true 12/03/2024 Dependent Care Answer Date Recorded Do you need help finding or paying for care for your loved ones. For example, child care coordinator or elderly care for an older adult? No 12/03/2024 Education Answer Date Recorded Do you think completing more education or training, like finishing a GED, going to college, or learning a trade, would be helpful for you? N/A 12/03/2024 Employment and Income Answer Date Recor ded During the last four weeks, have you been actively looking for work? Yes 12/03/2024 Living Situation Answer Date Recorded What is your living situation? Unrecognized valu e 12/03/2024 Comments No Sex and Gender Information Value Date Recorded Sex Assigned at Not on file Legal Sex Female 4:50 AM EST Gender Identity Not on file Sexual Orientation Not on file Obstetrics History Last Filed Vital Signs Vital Sign Reading Time Taken Comments Blood Pressure 100/65 12/03/2024 1:02 PM EDT Pulse 76 12/03/2024 1:02 PM EDT Temperature 36.9 C (98.5 F) 12/03/2024 1:02 PM EDT Respiratory Rate 17 12/03/2024 1:02 PM EDT Oxygen Saturation 100% 10/21/2024 11:48 AM EDT Inhaled Oxygen Concentration - - Weight 95.7 kg (211 lb) 12/03/2024 1:02 PM EDT Height 162.6 cm (5' 4 ) 12/03/2024 1:02 PM EDT Body Mass Index 36.22 12/03/2024 1:02 PM EDT Plan of Treatment Health Maintenance Due Date Last Done Comments Pneumococcal Vaccine: Pediatrics (0 to 5 Years) and At-Risk Patients (6 to 49 Years) (1 of 2 - PCV) 2012 Cervical Cancer Screening: Pap Smear 2014 COVID-19 Vaccine (1 - 2024- season) 2024 Influenza Vaccine (#1) 2024 , 02/15/2023, 02/25/2018, Additional history exists Social Influencers of Health Screening 12/03/2025 12/03/2024 Cholesterol Screening (Lipid Panel) 08/03/2029 08/03/2024, 08/20/2019 DTaP,Tdap,and Td Vaccines (10 - Td or Tdap) 02/15/2033 02/15/2023, 05/09/2020, 06/24/2018, Additional history exists HIB Vaccines Completed 10/23/1994, 03/1994, 05/23/1994 Hepatitis B Vaccines Completed 04/25/1995, 07/23/1994, 05/23/1994 IPV Vaccines Completed 10/23/1998, 03/1994, 10/23/1994, Additional history exists HPV Vaccines Completed 03/11/2007, 11/24, 06/27/2006 Varicella Vaccines Completed 07/28/2007, 09/22/1997 Meningococcal ACWY Vaccine Aged Out 06/17/2014, No longer eligible based on patient's age to complete this topic MMR Vaccines Completed 07/27/2018, 03/1998, 10/23/1994 HIV Screening Completed 05/09/2020 Hepatitis C Screening Completed 05/09/2020 RSV Immunization Adult Patients Completed 03/26/2023 Depression Screening Completed 12/03/2024, 12/02/19 24 Hepatitis A Vaccines Aged Out No long er eligible based on patient's age to complete this topic Meningococcal B Vaccine Aged Out No l onger eligible based on patient's age to complete this topic RSV Immunization Patients Under 20 months Aged Out No longer eligible based on patient's age to complete this topic Procedures Procedure Name Priority Date/Time Associated Diagnosis Comments LIPID PANEL WITH REFLEX TO DIRECT LDL Routine 08/03/2024 1:41 PM EDT Chronic anemia Screening, lipid Family history of diabetes mellitus HM DEPRESSION SCREENING Routine 12/02/2023 HEPATITIS C SCREENING Routine 05/09/2020 HIV SCREENING Routine 05/09/2020 from Last 3 Months or Most Recently Relevant to Health Maintenance Results * Lipid panel with reflex to direct LDL (08/03/2024 1:41 PM EDT) Cholesterol 159 0 - 200 mg/dL LAB CHEMISTRY METHOD 08/03/2024 5:[address] [facility] Triglycerides 68 0 - 150 mg/dL LAB CHEMISTRY METHOD 08/03/2024 5:[address] [facility] HDL 50 >=40 mg/dL LAB CHEMISTRY METHOD 08/03/2024 5:[address] [facility] LDL Calculated 95 0 - 100 mg/dL LAB CHEMISTRY METHOD 08/03/2024 5:[address] [facility] VLDL Cholesterol Minh 13.6 mg/dL LAB CHEMISTRY METHOD 08/03/2024 5:[address] [facility] Non HDL Chol. (LDL+VLDL) 109 <145 mg/dL LAB CHEMISTRY METHOD 08/03/2024 5:[address] [facility] Chol/HDL Ratio 3.2 0.0 - 4.4 LAB CHEMISTRY METHOD 08/03/2024 5:[address] [facility] Blood Venous blood specimen / Unknown Venipuncture / Unknown 08/03/2024 1:41 PM EDT 08/03/2024 1:41 PM EDT Vera LANGE LAB BLOOD ORDERABLES Fin al Result [facility] [address] [place] [address], [place] [phone] * Depression Screening (12/02/2023) Depression Screening abstracted Historical Provider HEALTH MAINTENANCE Final Result * HIV Screening (05/09/2020) Pathologist [facility] [place] HIV Screening abstracted Historical Provider HEALTH MAINTENANCE Final Result * Hepatitis C Screening (05/09/2020) Hepatitis C Screening abstracted Historical Provider HEALTH MAINTENANCE Final Result from Last 3 Months or Most Recently Relevant to Health Maintenance Insurance Care Teams Panel Maker Relationship Specialty Start Date End Date Cheikh Flro MD [address] [place] [address] PCP - General Internal Medicine 10/31/21
== END 2025-02-08 12:09 | disposition home or self-care (01) ==
PROVIDERS: Physician Assistant Medical; Emergency Provider Emergency Medicine; PCP Internal Medicine
DX: O21.9 Vomiting of pregnancy, unspecified (principal); Z3A.00 Weeks of gestation of pregnancy not specified; R19.7 Diarrhea, unspecified; K21.9 Gastro-esophageal reflux disease without esophagitis; F41.9 Anxiety disorder, unspecified
CPT/HCPCS: 36415; 80053; 81003; 83735; 84702; 85025; 96361; 96374; 99284; J2405